=== PATIENT | female | born 1965 | race Caucasian/White ===

== ENCOUNTER 2025-08-20 18:55 | Outpatient (BNV) | payer SELFPAY | END 2025-08-30 12:20 | PROVIDERS: Admitting Provider Psychiatry & Neurology Psychiatry; Visit Provider Internal Medicine Cardiovascular Disease | DX: Z13.6 Encounter for screening for cardiovascular disorders (principal) | CPT/HCPCS: 93010 ==

== ENCOUNTER 2025-08-20 18:55 | Inpatient (IN) | payer OTHER, SELFPAY ==
[2025-08-20 20:00] VITALS: BP 95/59; PULSE 88; RESP 15; TEMP 36.8; O2SAT 98
[2025-08-20 20:40] VITALS: BMI 20.4
--- NOTE | 2025-08-21 02:27 | PC.ADMIT ---
Patient is a 59 y.o. female, who was admitted from [facility]. She arrived to during the change of shift report at 19:30 on 08/20/25. Her legal status is Sec 12B. Upon her arrival [employer] was on the unit and offered patient to sign the CV, but pt was hesitant and not comprehending the legal status, so pt remains on 12B. The previous shift checked her VS and assessed her skin, no abnormal findings were reported. According to crisis evaluation, patient presented at [facility] with medication noncompliance of both medical and psychiatric issues for years. She was accompanied by her son, who is concerned of her mental health and believes she requires inpatient psychiatric evaluation. By his report, she is very disorganized, has AVH, signs and symptoms suggestive decompensated bipolar disorder with psychotic features. During the admission process to , pt. appeared to be overwhelmed and only signed release for her son. She denied SI/HI/AVH, reported zero depression and 10/10 anxiety. I don't know why I am here . She said that her pharmacy is [facility] and that she last took Geodon about 8 months ago. When TW called [facility], they had no prescription records for the last two years. Pt was oriented to the unit and she asked for a snack. She declined meds for sleep and went to sleep at about 10pm. At 12:30 am she was up asking about Geodon, but declined sleep aids.
[2025-08-21 08:00] VITALS: BP 110/54; PULSE 65; TEMP 36.6; O2SAT 97
--- NOTE | 2025-08-21 08:15 | P.CONHOSP_ITS ---
History of Present Illness Data of Consult Service Date: 08/21/25 Primary Care Provider: Unknown Physician HPI Reason for consult: Medical consult 59-year-old female with a past medical history of bipolar 1 disorder, anxiety, history of CVA, type 2 diabetes, hypertension, and a history of syncope presented to [facility] with decompensated bipolar disorder with psychotic features. Per history patient has not been taking her medications or taking care of herself. She is currently on house as well. On exam patient is reporting chronic lower back pain, requesting Lidoderm patches. She otherwise feels well, she is ambulating with a steady gait. Poor dentition, denies any difficulty chewing or swallowing. Outside records reveals CBC within normal limits, electrolytes without any abnormalities, negative tox screen. Review of Systems Review of Systems: Denies any shortness of breath, chest pain, palpitations, dizziness, lightheadedness, headaches, dysuria, abdominal pain or discomfort, nausea, vomiting or diarrhea. Denies Chills, body aches, muscle aches, fatigue or weight loss. PMFSH Social History Household Members: None Housing: Homeless Do you presently have visiting nurse or other home services: No Patient Tobacco Use Status: Never used Tobacco Second Hand Smoke Exposure: No Currently Displaying Signs/Symptoms of Drug Intoxication Withdrawal: No Have you been hit, kicked, punched, or otherwise hurt by someone within the past year? If so, by whom?: No Do you feel safe in your current relationship?: No Current Relationship Advance Directives: No Advance Directives Information Provided: No Do you have thoughts of harming others: None Do you have a plan to hurt others: No Plan Recently lost weight without trying: No Eating poorly because of decreased appetite: No Nutrition Risks: No Nutritional Risk Patient : No : No Meds Allergies Allergy/AdvReac Type Severity Reaction Status Date / Time azithromycin Allergy Unknown Unknown Verified 08/20/25 17:41 latex Allergy Unknown Unknown Verified 08/20/25 17:41 Penicillins (PCN) Allergy Unknown Unknown Verified 08/20/25 17:41 Sulfa (Sulfonamide Allergy Unknown Unknown Verified 08/20/25 17:41 Antibiotics) Active Medications: Current Medications Acetaminophen (Acetaminophen 325 Mg Tablet) 650 mg PO Q6H PRN PRN Reason: Headache/Pain, Scale 1-10 Last Admin: 08/21/25 03:29 Dose: 650 mg Al Hydroxide/Mg Hydroxide (Magnesium Hydrox/Alum Hydrox 30 Ml Oral.Susp) 30 ml PO Q6H PRN PRN Reason: Heartburn/Nausea Hydroxyzine HCl (Hydroxyzine Hcl 25 Mg Tablet) 25 mg PO Q6H PRN PRN Reason: mild anxiety Magnesium Hydroxide (Milk Of Magnesia 30 Ml Oral.Susp) 30 ml PO DAILY PRN PRN Reason: Constipation Nicotine Polacrilex (Nicotine Polacrilex 2 Mg Gum) 4 mg BUCCAL Q2H PRN PRN Reason: Nicotine Cravings Trazodone HCl (Trazodone Hcl 50 Mg Tablet) 50 mg PO BEDTIME MRX1 PRN PRN Reason: Insomnia Home Medications ?Medication ?Instructions ?Recorded ?Confirmed ?Last Taken ?Type No Known Home Meds 08/20/25 08/20/25 Un known History Physical Exam Vital Signs and Narrative: Vital Signs: Last Vital Signs Temp 98.3 F 08/20/25 20:00 Pulse 88 08/20/25 20:00 Resp 15 08/20/25 20:00 BP 95/59 L 08/20/25 20:00 Pulse Ox 98 08/20/25 20:00 BMI result Body Mass Index 20.4 CONST: Alert and oriented, in NAD. Thin, poor dentition, disheveled. HEENT: Normocephalic, atraumatic, MMM, Eyes clear, Neck supple RESP: Lungs clear, RRR even and regular HEART:,RRR, S1, S2. No murmur, no edema GI:Abdomen Soft NT, ND. + BS times four :Deferred SKIN: Warm dry and intact, no visible lesions or rashes NEURO:CN II-XII Intact bilaterally, Sensation intact. Speech clear PSYCH: Calm affect, cooperative. Assessment and Plan (1) B12 deficiency: Status: Acute Plan 59-year-old female with a past medical history of bipolar with psychotic features, anxiety, history of CVA, type 2 diabetes, hypertension, and a history of syncope admitted to inpatient psych for decompensated bipolar disorder. Patient has been off of medications for several years. Bipolar with psychotic features, anxiety Treatment per psychiatric team Hypertension/history of CVA Her blood pressure is stable Not on medications, continue to monitor Type 2 diabetes history Recent A1c 5.3 Diet-controlled Low B12 We will check methylmalonic acid and homocystine levels, CBC with diff Start B12 1000 mcg p.o. Chronic low back pain Lidoderm patches Thank you for allowing me to participate in the care of this patient. Will follow as needed, please notify medical provider with any changes in condition or concerns.
[2025-08-21 08:37] LABS: Hemoglobin A1C 119.0449 umol/L; Total Hemoglobin (HGBA1C) 3448.2344 umol/L
[2025-08-21 09:07] LABS: Cholesterol 172 mg/dL (<200); HDL Cholesterol 55 mg/dL (>40); Magnesium 2.0 mg/dL (1.6-2.6); Triglycerides 73 mg/dL (<150)
[2025-08-21 09:27] LABS: Free T4 (Free Thyroxine) 1.12 ng/dL (0.71-1.85); Thyroid Stimulating Hormone 1.22 uIU/mL (0.32-4.0)
[2025-08-21 09:30] LABS: Folate 5.9 ng/mL (> or = 4.0); Vitamin B12 < 148 pg/mL (200-900)
--- NOTE | 2025-08-21 13:22 | HO.PSYADMNOT ---
HPI Date of Service: 08/21/25 Chief Complaint: F31.9 Sources of Information: patient interviewed, chart reviewed and crisis/core team assessment reviewed HPI Subjective Notes: Section 12B Healthcare Proxy: No Guardianship: No Medical Problems Affecting Mental Status: No Narrative: Per [facility] crisis note: Patient is a 59 year old female who arrived to [facility] via family transportation for psychiatric evaluation. Precipitating Factors: Per report, pt wants an evaluation because she wants to be back on medications. Pt reported to carry bipolar diagnosis, has stopped taking meds for psychiatric and medical conditions for about 2 years. Collateral done in the ED with Son- Ariel who reported pt is not where she used to be, has been between 2-5 years without Geodon and has not been seeing any providers. Ariel reported pt's mental state has declined, she used to ask about her grandchildren but does not anymore, stares intensely at times, talks to herself in two different voices and takes a long pause/time when responding to them. Ariel reported pt seems disconnected from the world, sometimes will not know the date or will point to something that is not there. Ariel reported in pt's apartment, the entire apartment was covered in salt including her floor, furniture, closet, bathroom, even around the toilets and she will not say why. Ariel reported pt has possibly not been showering as the shower looks as if it has not been used in weeks and all the drains are covered, pt also shut the plumbing off underneath so that you cannot use water. Ariel reported when pt is asked when is the last time she has showered she says ?I don't know, I don't smell?. Ariel reported pt does not believe in water, only drinks soda and juice as well as eats junk food, not real food. Ariel reported pt is not brushing her teeth with high sugar intake. Ariel reported pt's neighbors had said she had been screaming to herself in her apartment. Ariel reported pt had not been managing her money, thinks it got stolen or someone stole her phone but according to bank statements, has been going to [employer] every 2 days and taking out $200. Ariel reported pt is declining, not caring for herself, does not feel she needs health insurance and is convinced her license is not so she will not get a new one, it has been for 6 years. Ariel reported pt is not an imminent risk to herseft but is a risk, family has tried assisted living but have been unsuccessful due to her not having active insurance. Ariel reported pt did have a stroke 2 years ago. Ariel reported pt would be going to a [facility]. On M5: patient reports reason for being brought to the hospital is I got evicted . Report that she was accompanied by her son to the [facility]. She reports that her phone disappeared that happended to 2 of them in the past. Patient asked staff if we can help her to locate the phone. She thinks someone took them. Denies mental health symptoms, denies anxiety or depression or manic behaviors. States she has been sleeping and eating well, not lose weight lately neither. Patient confirms that she never like drinking plain water, and admitted that she has been drinking soda but does not think too much soda or coffee will have negative effects on our brain functions. Patient denies family mental health hx but not sure regarding substance use. Denies substance use but smoke 1/2 PPD. Not see OP providers -psychiatrist or therapist or PCP for a long period of time and report she has not taking meds for months. Report hx of Geodone, sudoguest and Motrin. Report hx of stroke 5 years ago where she has left side weakness and was on rehab for it. 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 Currently not able to return home but think her son is helping her finding a new plac to stay. Denies SI/SIB/HI/AVH. Denies suicidal thoughts or suicide attempts hx. However, she appears to be paranoid, disorganized. Not able to process information regarding CV, continue asking cover and over again is it a 6 months thing? on the day she came in and again with this provider this morning. Patient read over and over again but cannot make up her mind of she wants to sign CV. Therefore, she remains on section 12B. Restart on Geodon. Will check electrolyes. Review Lab results with patient. No evidence of low potasium from ED. EKG was WNL. Patient is A+Ox3, wearing casual attire with pink hair, cooperative, appear to be disorganized and paranoid, depressed, soft spoken, no manic behavior. No SI/SIB/HI. Do not appear responding to internal stimuli or self dialogue. Poor to impaired insight and judgment. However, motivated to get back on meds. Past Psychiatric History: Report hx of 5 [facility] admissions, most recent one at [facility] couple years ago Do not have OP or therapist/ PCP at this current time. report med trials of Geordon. No Mood stabilizer Medical Evaluation Reviewed: Yes (Seen by hospitalist ) Seen by Hospitalist on 08/21/25. Low B12 PMFSH Narrative: Hx of stroke- 5 years ago Hx of hypokalemia Hx of hypoglycemia Narrative: Denies surgical hx Family History: Denies family mental health hx. Not sure regarding substance use Social History: , retired, have 2 sons. Currently is evicted. Substance History: Denies current use. Denies hx. Only smoke up to 1/2 PPD. Trauma History: Denies Diagnostics Vital Signs (24Hr): Vital Signs - 24 hr 08/20/25 20:00 08/21/25 08:00 Temperature 98.3 F 97.9 F Pulse Rate 88 65 Respiratory Rate 15 Blood Pressure 95/59 L 110/54 L Pulse Oximetry 98 97 Oxygen Delivery Method Room Air BMI result Body Mass Index 20.4 Labs Labs: Laboratory Results - last 48 hr 08/21/25 07:58 Estimat Average Glucose 105 Hemoglobin A1c % 5.3 Magnesium 2.0 Triglycerides 73 Cholesterol 172 LDL Cholesterol, Calc 103 H HDL Cholesterol 55 Vitamin B12 < 148 L Folate 5.9 TSH 1.22 Free T4 1.12 EKG EKG: reviewed EKG Comment: EKG NSR in the ED Meds/Allergies Meds Home Medications ?Medication ?Instructions ?Recorded ?Confirmed ?Type No Known Home Meds 08/20/25 08/20/25 History Allergies Allergies Allergy/AdvReac Type Severity Reaction Status Date / Time azithromycin Allergy Unknown Unknown Verified 08/20/25 17:41 latex Allergy Unknown Unknown Verified 08/20/25 17:41 Penicillins (PCN) Allergy Unknown Unknown Verified 08/20/25 17:41 Sulfa (Sulfonamide Allergy Unknown Unknown Verified 08/20/25 17:41 Antibiotics) Mental Status Exam Mental Status Exam Narrative: Patient is alert and oriented x3; behavior is cooperative, mild to moderate anxiety; patient is not in distress; dressed in casual attire with kempt pink hair and adequate hygiene; mood is described as good and affect incongruent; eye contact appropriate; Speech is normal rate, volume and prosody and not pressured; no psychomotor agitation/retardation present; thought process is somewhat disorganized and goal directed; Thought content is WNL, pertinent to relevant topics and without any delusional content, however appear to be paranoia; denies any SI/SIB/HI/AH. Do not appear to be responded to internal stimuli. Patient's insight and judgment impaired Assessment & Plan Assessment & Plan (1) Bipolar disorder, curr episode depressed, severe, w/psychotic features: Status: Acute Code(s): F31.5 - Bipolar disorder, current episode depressed, severe, with psychotic features (2) History of stroke: Status: Acute Code(s): Z86.73 - Personal history of transient ischemic attack (TIA), and cerebral infarction without residual deficits (3) Hypokalemia: Status: Acute Code(s): E87.6 - Hypokalemia Plan HPI: Patient is a 59 year old female who arrived to [facility] via family transportation for psychiatric evaluation. Precipitating Factors: Per report, pt wants an evaluation because she wants to be back on medications. Pt reported to carry bipolar diagnosis, has stopped taking meds for psychiatric and medical conditions for about 2 years. Formulation/clinical reasoning: disorganized, paranoid, impaired judgment and insight, not even recognized psychiatric symptoms, she is depressed, not taking care of self, not on meds for a couple years, making unsafe choices, not shower or eating normally, decompensated over time, not on meds either for psychiatric or medical conditions which put her self at risk, no current OP providers. Hx of Bipolar, DM II, HTN, CVA which she not even fully remember. Given the above information, patient would benefit to be in restrictive environment for own safety, medication management and refer patient to OP providers for aftercare. Hospital course: 08/21/25: Restart on Geodon 20mg BID, given with food. Will titrate up. Report was taking 80mg in the past. Motrin and Lidocaine patch for back pain Vitamin B12 1,000mg daily Plan Patient on 15 minute checks for safety. Admitted to . 12B Work with treatment team to do collateral. ADRIANNE did talk to Angel- her son on 08/21/25: please see ADRIANNE note for more details regarding hx and behavior. Per Angel, patient was dx with schizophrenia, bipolar D/O. Refer to OP psychiatrist/ therapist Seen by Hospitalist on 08/21/25. Hx of Hypokelemina: WNL in the ED.Will check lytes on 08/22/25. Patient educated on: diagnosis, medication risk/benefits and therapeutic strategies Informed Consent: understands and further education needed Reason for continued inpatient stay Substantial Risk for: med/psych decompensation Statement Statement: I have reviewed the history and physical and performed a pertinent examination on my patient. No changes have occurred unless specified. If the History and Physical was not performed prior to admission, the Hospitalist's service will be consulted for completing the admission physical. Time Spent With Patient Time: Total time managing care of this patient today ____ minutes.
[2025-08-21 16:59] LABS: Glucose, Whole Blood 102 mg/dL (60-115)
[2025-08-21] MEDS: Nicotine 21 MG PATCH.TD24 TRANSDERMA (17:23)
[2025-08-21 20:00] VITALS: BP 128/61; PULSE 70; RESP 16; TEMP 36.8; O2SAT 97
[2025-08-21 20:49] LABS: Glucose, Whole Blood 124 mg/dL (60-115)
[2025-08-22 08:00] VITALS: BP 120/56; PULSE 75; RESP 16; TEMP 36.2; O2SAT 98
[2025-08-22] MEDS: Lidocaine 4 % Patch ADH..PATCH 2 PATCH TRANSDERMA (08:00)
[2025-08-22] MEDS: Nicotine 21 MG PATCH.TD24 TRANSDERMA (08:01)
[2025-08-22 08:05] LABS: MANUAL DIFF FLAG NO
[2025-08-22 08:14] LABS: Hematocrit 41.0 % (37.0-47.0); Hemoglobin 13.8 g/dl (12.0-16.0); Imm Gran Abs Auto 0.02 X10*3/uL (0.00-0.03); Imm Gran Pct Auto 0.2 % (0.0-0.4); Lymphocytes Absolute Auto 3.5 X10*3/uL (1.2-4.9); Mean Corpuscular HGB Conc 33.7 g/dl (31.0-35.0); Mean Corpuscular Hemoglobin 32.3 pg (27.0-33.0); Mean Corpuscular Volume 96.0 fL (80.0-98.0); NRBC Abs Auto 0.000 X10*3/uL (0.0-0.012); NRBC Pct Auto 0.0 /100WBC (0.0-0.2); Platelet Count 385 X10*3/uL (160-400); Red Blood Count 4.27 X10*6/uL (4.20-5.50); White Blood Count 9.8 X10*3/uL (4.8-10.8)
[2025-08-22 08:24] LABS: Glucose, Whole Blood 92 mg/dL (60-115)
[2025-08-22 08:31] LABS: Anion Gap 9 (12-20); Blood Urea Nitrogen 21 mg/dL (9-16); Calcium 10.2 mg/dL (8.4-10.2); Carbon Dioxide 27 mmol/L (22-29); Chloride 111 mmol/L (96-108); Creatinine Clr Calc Pharmacy 84.6; Estimated Glomerular Filt Rate > 60; Potassium 4.0 mmol/L (3.3-5.1); Sodium 143 mmol/L (135-145)
[2025-08-22 12:20] LABS: Glucose, Whole Blood 113 mg/dL (60-115)
--- NOTE | 2025-08-22 16:52 | HO.PSYCHPN ---
Subjective Subjective Date of Service: 08/22/25 Reason For Visit: F31.9 Subjective Notes: Conditional Voluntary Healthcare Proxy: No Guardianship: No Medical Problems Affecting Mental Status: No Interim History: Medical record and nursing notes reviewed; case discussed during rounds with team/nursing staff, and met with patient for supportive therapy/psychoeducation, as well as medication management. Patient slept for 6 hours, was meds compliant without side effects. Tolerate well with Geodon. Denies mental health symptoms, poor insight and judgment. Patient reports she was given chewable pink color medication- adderall in the ED but not sure the name of medications but she thinks she was given adderall. Patient reports that she was given Adderall in 2016. It was reported to SW on Sunday from her son that it was suspected that patient had hx of overused her adderall. Patient is quiet but appear having racing thoughts. Report back and R hip pain. Reviewed medication plan, patient agrees to take low dose of trazodone for insomnia. Given Ensure BID for low weight, BMI. Patient appears to be disorganized. Medication Compliance: Yes Side effects from medications: No Attending Groups: Yes Review of Systems Acute medical concerns: No Medical Review of Systems: unchanged Review of Systems Review of Systems Constitutional: Denies fatigue and Denies fever(s) Cardiovascular: Denies chest pain and Denies dyspnea Respiratory: Denies dyspnea Gastrointestinal: Denies abdominal pain Psychiatric: denies suicidal ideation Endocrine: Denies fatigue Yes all other systems are reviewed and are negative Mental Status Exam Mental Status Exam Narrative: Patient is alert and oriented x3; behavior is cooperative, mild to moderate anxiety; patient is not in distress; dressed in casual attire with kempt pink hair and adequate hygiene; mood is described as good and affect incongruent; eye contact appropriate; Speech is normal rate, volume and prosody and not pressured; no psychomotor agitation/retardation present; thought process is somewhat disorganized and goal directed; Thought content is WNL, pertinent to relevant topics and without any delusional content, however appear to be paranoia; denies any SI/SIB/HI. Patient's insight and judgment impaired Diagnostics Vital Signs (24Hr): Vital Signs - 24 hr 08/21/25 20:00 08/22/25 08:00 Temperature 98.2 F 97.2 F Pulse Rate 70 75 Respiratory Rate 16 16 Blood Pressure 128/61 120/56 L Pulse Oximetry 97 98 Oxygen Delivery Method Room Air Room Air BMI result Body Mass Index 20.4 Labs 08/22/25 07:38 08/22/25 07:38 Labs: Laboratory Results - last 48 hr 08/21/25 08/21/25 08/21/25 07:58 16:48 20:45 WBC RBC Hgb Hct MCV MCH MCHC RDW Plt Count MPV Immature Gran % (Auto) Neut % (Auto) Lymph % (Auto) [place] % (Auto) Eos % (Auto) Baso % (Auto) Lymph # (Auto) [place] # (Auto) Eos # (Auto) Baso # (Auto) Abs Immat Gran (auto) Absolute Neuts (auto) Absolute Nucleated RBC Nucleated RBC % (auto) Sodium Potassium Chloride Carbon Dioxide Anion Gap BUN Creatinine Estim Creat Clear Calc Estimated GFR POC Glucose 102 124 H Random Glucose Estimat Average Glucose 105 Hemoglobin A1c % 5.3 Calcium Magnesium 2.0 Triglycerides 73 Cholesterol 172 LDL Cholesterol, Calc 103 H HDL Cholesterol 55 Vitamin B12 < 148 L Folate 5.9 TSH 1.22 Free T4 1.12 08/22/25 08/22/25 08/22/25 07:38 08:20 12:16 WBC 9.8 RBC 4.27 Hgb 13.8 Hct 41.0 MCV 96.0 MCH 32.3 MCHC 33.7 RDW 13.2 Plt Count 385 MPV 10.5 Immature Gran % (Auto) 0.2 Neut % (Auto) 51.8 Lymph % (Auto) 35.5 [place] % (Auto) 8.1 Eos % (Auto) 3.3 Baso % (Auto) 1.1 Lymph # (Auto) 3.5 [place] # (Auto) 0.8 Eos # (Auto) 0.3 Baso # (Auto) 0.1 Abs Immat Gran (auto) 0.02 Absolute Neuts (auto) 5.1 Absolute Nucleated RBC 0.000 Nucleated RBC % (auto) 0.0 Sodium 143 Potassium 4.0 Chloride 111 H Carbon Dioxide 27 Anion Gap 9 L BUN 21 H Creatinine 0.65 Estim Creat Clear Calc 84.6 Estimated GFR > 60 POC Glucose 92 113 Random Glucose 77 Estimat Average Glucose Hemoglobin A1c % Calcium 10.2 Magnesium Triglycerides Cholesterol LDL Cholesterol, Calc HDL Cholesterol Vitamin B12 Folate TSH Free T4 Medications Medications Current Medications Acetaminophen (Acetaminophen 325 Mg Tablet) 650 mg PO Q6H PRN PRN Reason: Headache/Pain, Scale 1-10 Last Admin: 08/21/25 13:57 Dose: 650 mg Al Hydroxide/Mg Hydroxide (Magnesium Hydrox/Alum Hydrox 30 Ml Oral.Susp) 30 ml PO Q6H PRN PRN Reason: Heartburn/Nausea Benzocaine (Throat Lozenge, Medicated Lozenge) 1 lozenge MUCOUS MEM Q2H PRN PRN Reason: Sore Throat Cyanocobalamin (Cyanocobalamin (Vitamin B-12) 1,000 Mcg Tablet) 1,000 mcg PO DAILY [facility] Last Admin: 08/22/25 08:01 Dose: 1,000 mcg Dextrose (Dextrose 50 % 25 Gm/50 Ml Syringe) 25 gm IVPUSH Q15M PRN; Protocol PRN Reason: per Hypoglycemia Standing Ord. Glucose (Glucose Gel 15 Gm Gel..Gram.) 15 gm PO Q15M PRN; Protocol PRN Reason: per Hypoglycemia Standing Ord. Hydroxyzine HCl (Hydroxyzine Hcl 25 Mg Tablet) 25 mg PO Q6H PRN PRN Reason: mild anxiety Last Admin: 08/22/25 03:16 Dose: 25 mg Ibuprofen (Ibuprofen 600 Mg Tablet) 600 mg PO Q8H PRN PRN Reason: severe back pain Last Admin: 08/22/25 08:46 Dose: 600 mg Insulin Human Lispro (Insulin Lispro 100 Unit/Ml 3 Ml Vial) 0 unit SUBCUT QIDACHS [facility]; Protocol Last Admin: 08/22/25 12:29 Dose: Not Given Lidocaine (Lidocaine 4 % Patch Adh..Patch) 2 patch TRANSDERMA DAILY [facility]; Protocol Last Admin: 08/22/25 08:00 Dose: 2 patch Magnesium Hydroxide (Milk Of Magnesia 30 Ml Oral.Susp) 30 ml PO DAILY PRN PRN Reason: Constipation Nicotine (Nicotine 21 Mg Patch.Td24) 21 mg TRANSDERMA DAILY [facility] Last Admin: 08/22/25 08:01 Dose: 21 mg Nicotine Polacrilex (Nicotine Polacrilex 2 Mg Gum) 4 mg BUCCAL Q2H PRN PRN Reason: Nicotine Cravings Last Admin: 08/22/25 08:02 Dose: 4 mg Sodium Chloride (Sodium Chloride 0.65 % Nasal 44 Ml Sprbtl) 1 spray NOSTRIL-B Q4H PRN PRN Reason: Congestion Trazodone HCl (Trazodone Hcl 50 Mg Tablet) 50 mg PO BEDTIME MRX1 PRN PRN Reason: Insomnia Trazodone HCl (Trazodone Hcl 25 Mg Halftab) 25 mg PO BEDTIME CAL Ziprasidone (Ziprasidone 20 Mg Capsule) 20 mg PO BID@0900,1700 [facility] Last Admin: 08/22/25 08:01 Dose: 20 mg Allergies Allergies Allergy/AdvReac Type Severity Reaction Status Date / Time azithromycin Allergy Unknown Unknown Verified 08/20/25 17:41 latex Allergy Unknown Unknown Verified 08/20/25 17:41 Penicillins (PCN) Allergy Unknown Unknown Verified 08/20/25 17:41 Sulfa (Sulfonamide Allergy Unknown Unknown Verified 08/20/25 17:41 Antibiotics) Assessment & Plan Assessment & Plan (1) Bipolar disorder, curr episode depressed, severe, w/psychotic features: Status: Acute Code(s): F31.5 - Bipolar disorder, current episode depressed, severe, with psychotic features (2) History of stroke: Status: Acute Code(s): Z86.73 - Personal history of transient ischemic attack (TIA), and cerebral infarction without residual deficits (3) Hypokalemia: Status: Acute Code(s): E87.6 - Hypokalemia (4) B12 deficiency: Status: Acute Code(s): E53.8 - Deficiency of other specified B group vitamins Plan HPI: Patient is a 59 year old female who arrived to [facility] via family transportation for psychiatric evaluation. Precipitating Factors: Per report, pt wants an evaluation because she wants to be back on medications. Pt reported to carry bipolar diagnosis, has stopped taking meds for psychiatric and medical conditions for about 2 years. Formulation/clinical reasoning: disorganized, paranoid, impaired judgment and insight, not even recognized psychiatric symptoms, she is depressed, not taking care of self, not on meds for a couple years, making unsafe choices, not shower or eating normally, decompensated over time, not on meds either for psychiatric or medical conditions which put her self at risk, no current OP providers. Hx of Bipolar, DM II, HTN, CVA which she not even fully remember. Given the above information, patient would benefit to be in restrictive environment for own safety, medication management and refer patient to OP providers for aftercare. Hospital course: 08/21/25: Restart on Geodon 20mg BID, given with food. Will titrate up. Report was taking 80mg in the past. Motrin and Lidocaine patch for back pain Vitamin B12 1,000mg daily 08/22/25: Patient slept for 6 hours, was meds compliant without side effects. Tolerate well with Geodon. Denies mental health symptoms, poor insight and judgment. Patient reports she was given chewable pink color medication- adderall in the ED but not sure the name of medications but she thinks she was given adderall. Patient reports that she was given Adderall in 2016. It was reported to ADRIANNE on Sunday from her son that it was suspected that patient had hx of overused her adderall. Patient is quiet but appear having racing thoughts. Report back and R hip pain. Reviewed medication plan, patient agrees to take low dose of trazodone for insomnia. Given Ensure BID for low weight, BMI. Patient appears to be disorganized. Plan Patient on 15 minute checks for safety. Admitted to . 12B Work with treatment team to do collateral. ADRIANNE did talk to Angel- her son on 08/21/25: please see ADRIANNE note for more details regarding hx and behavior. Per Angel, patient was dx with schizophrenia, bipolar D/O. Refer to OP psychiatrist/ therapist Seen by Hospitalist on 08/21/25. Hx of Hypokelemina: WNL in the ED.Will check lytes on 08/22/25. Patient educated on: diagnosis, medication risk/benefits, substance abuse and therapeutic strategies Reason for continued inpatient stay Substantial Risk for: med/psych decompensation Time Spent With Patient Time: Total time managing care of this patient today ____ minutes.
[2025-08-22 17:19] LABS: Glucose, Whole Blood 141 mg/dL (60-115)
[2025-08-22] MEDS: Sodium Chloride 0.65 % Nasal 44 ML SPRBTL 1 SPRAY NOSTRIL-B (17:43)
[2025-08-22] MEDS: Throat Lozenge, Medicated LOZENGE 1 LOZENGE MUCOUS MEM (17:43)
[2025-08-22 19:46] VITALS: BP 135/59; PULSE 88; TEMP 36.7; O2SAT 98
[2025-08-22 20:11] LABS: Glucose, Whole Blood 115 mg/dL (60-115)
[2025-08-22] MEDS: traZODone HCL 25 MG HALFTAB PO (20:15)
[2025-08-23 07:45] VITALS: BP 124/61; PULSE 78; RESP 16; TEMP 36.4; O2SAT 100
[2025-08-23 07:55] LABS: Glucose, Whole Blood 110 mg/dL (60-115)
[2025-08-23] MEDS: Nicotine 21 MG PATCH.TD24 TRANSDERMA (08:27)
[2025-08-23] MEDS: Lidocaine 4 % Patch ADH..PATCH 2 PATCH TRANSDERMA (08:28)
[2025-08-23] MEDS: Throat Lozenge, Medicated LOZENGE 1 LOZENGE MUCOUS MEM (08:30)
[2025-08-23 12:14] LABS: Glucose, Whole Blood 148 mg/dL (60-115)
--- NOTE | 2025-08-23 18:38 | P.PNPSI_ITS ---
Subjective Subjective Date of Service: 08/23/25 Reason For Visit: F31.9 Subjective Notes: Conditional Voluntary Healthcare Proxy: No Guardianship: No Medical Problems Affecting Mental Status: No Interim History: Medical record and nursing notes reviewed; case discussed during rounds with team/nursing staff, and met with patient for supportive therapy/psychoeducation, as well as medication management. Patient slept better, has been eating good. Blood sugar is within normal limits was slightly elevated. Point of care was DC'd. Patient asked about her insurance, wants Geodon to be increased. Perseverative about Geodon 80 mg which she was on in the past. Reports running nose/allergy symptoms. Continued to denies signs symptoms, poor insight and judgment, quiet, visible, compliant with medications. She is disorganized but slightly improved. Medication Compliance: Yes Side effects from medications: No Attending Groups: Intermittent Review of Systems Acute medical concerns: No Medical Review of Systems: unchanged Review of Systems Review of Systems Constitutional: Denies fatigue and Denies fever(s) Cardiovascular: Denies chest pain and Denies dyspnea Respiratory: Denies dyspnea Gastrointestinal: Denies abdominal pain Psychiatric: denies suicidal ideation Endocrine: Denies fatigue Yes all other systems are reviewed and are negative Mental Status Exam Mental Status Exam Narrative: Patient is alert and oriented x3; behavior is cooperative, mild to moderate anxiety; patient is not in distress; dressed in casual attire with kempt pink hair and adequate hygiene; mood is described as good and affect congruent; eye contact appropriate; Speech is normal rate, volume and prosody and not pressured; no psychomotor agitation/retardation present; thought process is somewhat disorganized and goal directed; Thought content is WNL, pertinent to relevant topics and without any delusional content, denies any SI/SIB/HI. Patient's insight and judgment impaired Diagnostics Vital Signs (24Hr): Vital Signs - 24 hr 08/22/25 19:46 08/23/25 07:45 Temperature 98.1 F 97.5 F Pulse Rate 88 78 Respiratory Rate 16 Blood Pressure 135/59 L 124/61 Pulse Oximetry 98 100 Oxygen Delivery Method Room Air Room Air BMI result Body Mass Index 20.4 Labs 08/22/25 07:38 08/22/25 07:38 Labs: Laboratory Results - last 48 hr 08/21/25 08/22/25 08/22/25 20:45 07:38 08:20 WBC 9.8 RBC 4.27 Hgb 13.8 Hct 41.0 MCV 96.0 MCH 32.3 MCHC 33.7 RDW 13.2 Plt Count 385 MPV 10.5 Immature Gran % (Auto) 0.2 Neut % (Auto) 51.8 Lymph % (Auto) 35.5 [place] % (Auto) 8.1 Eos % (Auto) 3.3 Baso % (Auto) 1.1 Lymph # (Auto) 3.5 [place] # (Auto) 0.8 Eos # (Auto) 0.3 Baso # (Auto) 0.1 Abs Immat Gran (auto) 0.02 Absolute Neuts (auto) 5.1 Absolute Nucleated RBC 0.000 Nucleated RBC % (auto) 0.0 Sodium 143 Potassium 4.0 Chloride 111 H Carbon Dioxide 27 Anion Gap 9 L BUN 21 H Creatinine 0.65 Estim Creat Clear Calc 84.6 Estimated GFR > 60 POC Glucose 124 H 92 Random Glucose 77 Calcium 10.2 08/22/25 08/22/25 08/22/25 12:16 17:09 20:02 WBC RBC Hgb Hct MCV MCH MCHC RDW Plt Count MPV Immature Gran % (Auto) Neut % (Auto) Lymph % (Auto) [place] % (Auto) Eos % (Auto) Baso % (Auto) Lymph # (Auto) [place] # (Auto) Eos # (Auto) Baso # (Auto) Abs Immat Gran (auto) Absolute Neuts (auto) Absolute Nucleated RBC Nucleated RBC % (auto) Sodium Potassium Chloride Carbon Dioxide Anion Gap BUN Creatinine Estim Creat Clear Calc Estimated GFR POC Glucose 113 141 H 115 Random Glucose Calcium 08/23/25 08/23/25 07:45 12:08 WBC RBC Hgb Hct MCV MCH MCHC RDW Plt Count MPV Immature Gran % (Auto) Neut % (Auto) Lymph % (Auto) [place] % (Auto) Eos % (Auto) Baso % (Auto) Lymph # (Auto) [place] # (Auto) Eos # (Auto) Baso # (Auto) Abs Immat Gran (auto) Absolute Neuts (auto) Absolute Nucleated RBC Nucleated RBC % (auto) Sodium Potassium Chloride Carbon Dioxide Anion Gap BUN Creatinine Estim Creat Clear Calc Estimated GFR POC Glucose 110 148 H Random Glucose Calcium Medications Medications Current Medications Acetaminophen (Acetaminophen 325 Mg Tablet) 650 mg PO Q6H PRN PRN Reason: Headache/Pain, Scale 1-10 Last Admin: 08/21/25 13:57 Dose: 650 mg Al Hydroxide/Mg Hydroxide (Magnesium Hydrox/Alum Hydrox 30 Ml Oral.Susp) 30 ml PO Q6H PRN PRN Reason: Heartburn/Nausea Benzocaine (Throat Lozenge, Medicated Lozenge) 1 lozenge MUCOUS MEM Q2H PRN PRN Reason: Sore Throat Last Admin: 08/23/25 08:30 Dose: 1 lozenge Cyanocobalamin (Cyanocobalamin (Vitamin B-12) 1,000 Mcg Tablet) 1,000 mcg PO DAILY [facility] Last Admin: 08/23/25 08:30 Dose: 1,000 mcg Dextrose (Dextrose 50 % 25 Gm/50 Ml Syringe) 25 gm IVPUSH Q15M PRN; Protocol PRN Reason: per Hypoglycemia Standing Ord. Glucose (Glucose Gel 15 Gm Gel..Gram.) 15 gm PO Q15M PRN; Protocol PRN Reason: per Hypoglycemia Standing Ord. Hydroxyzine HCl (Hydroxyzine Hcl 25 Mg Tablet) 25 mg PO Q6H PRN PRN Reason: mild anxiety Last Admin: 08/23/25 12:02 Dose: 25 mg Ibuprofen (Ibuprofen 600 Mg Tablet) 600 mg PO Q8H PRN PRN Reason: severe back pain Last Admin: 08/23/25 08:41 Dose: 600 mg Lidocaine (Lidocaine 4 % Patch Adh..Patch) 2 patch TRANSDERMA DAILY [facility]; Protocol Last Admin: 08/23/25 08:28 Dose: 2 patch Loratadine (Loratadine 10 Mg Tablet) 10 mg PO DAILY [facility] Magnesium Hydroxide (Milk Of Magnesia 30 Ml Oral.Susp) 30 ml PO DAILY PRN PRN Reason: Constipation Nicotine (Nicotine 21 Mg Patch.Td24) 21 mg TRANSDERMA DAILY [facility] Last Admin: 08/23/25 08:27 Dose: 21 mg Nicotine Polacrilex (Nicotine Polacrilex 2 Mg Gum) 4 mg BUCCAL Q2H PRN PRN Reason: Nicotine Cravings Last Admin: 08/23/25 16:01 Dose: 4 mg Sodium Chloride (Sodium Chloride 0.65 % Nasal 44 Ml Sprbtl) 1 spray NOSTRIL-B Q4H PRN PRN Reason: Congestion Last Admin: 08/22/25 17:43 Dose: 1 spray Trazodone HCl (Trazodone Hcl 50 Mg Tablet) 50 mg PO BEDTIME MRX1 PRN PRN Reason: Insomnia Trazodone HCl (Trazodone Hcl 25 Mg Halftab) 25 mg PO BEDTIME [facility] Last Admin: 08/22/25 20:15 Dose: 25 mg Ziprasidone (Ziprasidone 20 Mg Capsule) 20 mg PO DAILY [facility] Ziprasidone (Ziprasidone 40 Mg Capsule) 40 mg PO DAILY@1700 [facility] Last Admin: 08/23/25 17:33 Dose: 40 mg Allergies Allergies Allergy/AdvReac Type Severity Reaction Status Date / Time azithromycin Allergy Unknown Unknown Verified 08/20/25 17:41 latex Allergy Unknown Unknown Verified 08/20/25 17:41 Penicillins (PCN) Allergy Unknown Unknown Verified 08/20/25 17:41 Sulfa (Sulfonamide Allergy Unknown Unknown Verified 08/20/25 17:41 Antibiotics) Assessment & Plan Assessment & Plan (1) Bipolar disorder, curr episode depressed, severe, w/psychotic features: Status: Acute Code(s): F31.5 - Bipolar disorder, current episode depressed, severe, with psychotic features (2) History of stroke: Status: Acute Code(s): Z86.73 - Personal history of transient ischemic attack (TIA), and cerebral infarction without residual deficits (3) Hypokalemia: Status: Acute Code(s): E87.6 - Hypokalemia (4) B12 deficiency: Status: Acute Code(s): E53.8 - Deficiency of other specified B group vitamins Plan HPI: Patient is a 59 year old female who arrived to [facility] via family transportation for psychiatric evaluation. Precipitating Factors: Per report, pt wants an evaluation because she wants to be back on medications. Pt reported to carry bipolar diagnosis, has stopped taking meds for psychiatric and medical conditions for about 2 years. Formulation/clinical reasoning: disorganized, paranoid, impaired judgment and insight, not even recognized psychiatric symptoms, she is depressed, not taking care of self, not on meds for a couple years, making unsafe choices, not shower or eating normally, decompensated over time, not on meds either for psychiatric or medical conditions which put her self at risk, no current OP providers. Hx of Bipolar, DM II, HTN, CVA which she not even fully remember. Given the above information, patient would benefit to be in restrictive environment for own safety, medication management and refer patient to OP providers for aftercare. Hospital course: 08/21/25: Restart on Geodon 20mg BID, given with food. Will titrate up. Report was taking 80mg in the past. Motrin and Lidocaine patch for back pain Vitamin B12 1,000mg daily 08/22/25: Patient slept for 6 hours, was meds compliant without side effects. Tolerate well with Geodon. Denies mental health symptoms, poor insight and judgment. Patient reports she was given chewable pink color medication- adderall in the ED but not sure the name of medications but she thinks she was given adderall. Patient reports that she was given Adderall in 2016. It was reported to SW on Sunday from her son that it was suspected that patient had hx of overused her adderall. Patient is quiet but appear having racing thoughts. Report back and R hip pain. Reviewed medication plan, patient agrees to take low dose of trazodone for insomnia. Given Ensure BID for low weight, BMI. Patient appears to be disorganized. 08/23/25: Patient slept better, has been eating good. Blood sugar is within normal limits was slightly elevated. Point of care was DC'd. Patient asked about her insurance, wants Geodon to be increased. Perseverative about Geodon 80 mg which she was on in the past. Reports running nose/allergy symptoms. Continued to denies signs symptoms, poor insight and judgment, quiet, visible, compliant with medications. She is disorganized but slightly improved. Increase Geodon up to 60mg total daily in divided dose. Give with food. Claritin 10mg daily for allergy. Plan Patient on 15 minute checks for safety. Admitted to . CV Work with treatment team to do collateral. ADRIANNE did talk to Angel- her son on 08/21/25: please see ADRIANNE note for more details regarding hx and behavior. Per Angel, patient was dx with schizophrenia, bipolar D/O. Refer to OP psychiatrist/ therapist Seen by Hospitalist on 08/21/25. Hx of Hypokelemina: WNL in the ED.Will check lytes on 08/22/25. Patient educated on: diagnosis, medication risk/benefits and therapeutic strategies Informed Consent: understands and further education needed Reason for continued inpatient stay Substantial Risk for: med/psych decompensation Time Spent With Patient Time: Total time managing care of this patient today ____ minutes.
[2025-08-23 19:50] VITALS: BP 105/58; PULSE 89; TEMP 37.1; O2SAT 96
[2025-08-23] MEDS: traZODone HCL 25 MG HALFTAB PO (20:07)
[2025-08-24 08:00] VITALS: BP 117/61; PULSE 90; RESP 16; TEMP 35.5; O2SAT 97
[2025-08-24] MEDS: Nicotine 21 MG PATCH.TD24 TRANSDERMA (09:03)
--- NOTE | 2025-08-24 09:14 | P.PNPSI_ITS ---
Subjective Subjective Date of Service: 08/24/25 Reason For Visit: F31.9 Interim History: Met with patient; discussed with team; reviewed chart Patient reports she is Sleeping through the night. She remains a limited historian, not remembering much. When asked about manic episodes she says she will have 2 days of not sleeping and then refers to her struggles in high school where she was late to school many days because of oversleeping... She thinks she may have gone as much as 5 days without sleeping at different times in her life. When asked about other manic symptoms, patient starts to inappropriately laugh in a hilarious way saying that she does excess food shopping, nothing perishable... It is difficult to get specifics and patient continues to laugh, somewhat uncontrollably at the questions. Cigarette Paper Tester discussed medication and patient patient Says Nick ?Makes me feel better? and on inquiry agrees that it helps her Think more clearly Denies hx of AVH Cigarette Paper Tester reviewed medication list sent in documentation from [place] [facility], however patient is unaware of them: Primodine 50mg qhs; Denies any hx of seizurehad a stroke 5 years, hard to right (rt side); Buspar 10mg TID Wellbutren ER 100mg Lyrica 75 Bid From chart, and collateral patient's son says she does not eat in a healthy way, consumes excess amount of sugar and only drinks sugared drinks Family reports patient has not been attending to any ADLs though patient says otherwise Cigarette Paper Tester asked about why she was putting salt around the toilet and she says it is just to clean the area Denies any history of alcoholism though collateral strongly says otherwise Family concerned that perhaps patient's account information has been stolen the money was being consistently withdrawn Mental Status Exam Mental Status Exam Narrative: Pt is alert and oriented; behavior is quiet, keeping to herself, somewhat apprehensive but cooperative, friendly and calm on approach; patient is not in distress; dressed in casual attire with pink dyed hair, unkempt; mood is described as okay and affect anxious, apprehensive; eye contact appropriate; Speech is a little quiet but normal rate, and prosody; not pressured; no psychomotor agitation/retardation present; thought process is goal directed but distracted and with latency; Thought content seems to be on tx; no delusional ideations expressed; denies any SI/HI. Denies AVH and does not seem to be particularly internally preoccupied but not clear yet Patients insight and judgment impaired; not sure baseline Diagnostics Vital Signs (24Hr): Vital Signs - 24 hr 08/23/25 19:50 Temperature 98.8 F Pulse Rate 89 Blood Pressure 105/58 L Pulse Oximetry 96 Oxygen Delivery Method Room Air BMI result Body Mass Index 20.4 Labs 08/22/25 07:38 08/22/25 07:38 Labs: Laboratory Results - last 48 hr 08/22/25 08/22/25 08/22/25 12:16 17:09 20:02 POC Glucose 113 141 H 115 08/23/25 08/23/25 07:45 12:08 POC Glucose 110 148 H Medications Medications Current Medications Acetaminophen (Acetaminophen 325 Mg Tablet) 650 mg PO Q6H PRN PRN Reason: Headache/Pain, Scale 1-10 Last Admin: 08/21/25 13:57 Dose: 650 mg Al Hydroxide/Mg Hydroxide (Magnesium Hydrox/Alum Hydrox 30 Ml Oral.Susp) 30 ml PO Q6H PRN PRN Reason: Heartburn/Nausea Benzocaine (Throat Lozenge, Medicated Lozenge) 1 lozenge MUCOUS MEM Q2H PRN PRN Reason: Sore Throat Last Admin: 08/23/25 08:30 Dose: 1 lozenge Cyanocobalamin (Cyanocobalamin (Vitamin B-12) 1,000 Mcg Tablet) 1,000 mcg PO DAILY CAL Last Admin: 08/24/25 09:03 Dose: 1,000 mcg Dextrose (Dextrose 50 % 25 Gm/50 Ml Syringe) 25 gm IVPUSH Q15M PRN; Protocol PRN Reason: per Hypoglycemia Standing Ord. Glucose (Glucose Gel 15 Gm Gel..Gram.) 15 gm PO Q15M PRN; Protocol PRN Reason: per Hypoglycemia Standing Ord. Hydroxyzine HCl (Hydroxyzine Hcl 25 Mg Tablet) 25 mg PO Q6H PRN PRN Reason: mild anxiety Last Admin: 08/24/25 04:10 Dose: 25 mg Ibuprofen (Ibuprofen 600 Mg Tablet) 600 mg PO Q8H PRN PRN Reason: severe back pain Last Admin: 08/24/25 04:10 Dose: 600 mg Lidocaine (Lidocaine 4 % Patch Adh..Patch) 2 patch TRANSDERMA DAILY CAL; Protocol Last Admin: 08/23/25 08:28 Dose: 2 patch Loratadine (Loratadine 10 Mg Tablet) 10 mg PO DAILY [facility] Last Admin: 08/24/25 09:02 Dose: 10 mg Magnesium Hydroxide (Milk Of Magnesia 30 Ml Oral.Susp) 30 ml PO DAILY PRN PRN Reason: Constipation Nicotine (Nicotine 21 Mg Patch.Td24) 21 mg TRANSDERMA DAILY [facility] Last Admin: 08/24/25 09:03 Dose: 21 mg Nicotine Polacrilex (Nicotine Polacrilex 2 Mg Gum) 4 mg BUCCAL Q2H PRN PRN Reason: Nicotine Cravings Last Admin: 08/24/25 04:11 Dose: 4 mg Sodium Chloride (Sodium Chloride 0.65 % Nasal 44 Ml Sprbtl) 1 spray NOSTRIL-B Q4H PRN PRN Reason: Congestion Last Admin: 08/22/25 17:43 Dose: 1 spray Trazodone HCl (Trazodone Hcl 50 Mg Tablet) 50 mg PO BEDTIME MRX1 PRN PRN Reason: Insomnia Trazodone HCl (Trazodone Hcl 25 Mg Halftab) 25 mg PO BEDTIME [facility] Last Admin: 08/23/25 20:07 Dose: 25 mg Ziprasidone (Ziprasidone 20 Mg Capsule) 20 mg PO DAILY [facility] Last Admin: 08/24/25 09:03 Dose: 20 mg Ziprasidone (Ziprasidone 40 Mg Capsule) 40 mg PO DAILY@1700 [facility] Last Admin: 08/23/25 17:33 Dose: 40 mg Allergies Allergies Allergy/AdvReac Type Severity Reaction Status Date / Time azithromycin Allergy Unknown Unknown Verified 08/20/25 17:41 latex Allergy Unknown Unknown Verified 08/20/25 17:41 Penicillins (PCN) Allergy Unknown Unknown Verified 08/20/25 17:41 Sulfa (Sulfonamide Allergy Unknown Unknown Verified 08/20/25 17:41 Antibiotics) Assessment & Plan Assessment & Plan (1) Bipolar disorder, curr episode depressed, severe, w/psychotic features: Status: Acute Code(s): F31.5 - Bipolar disorder, current episode depressed, severe, with psychotic features (2) History of stroke: Status: Acute Code(s): Z86.73 - Personal history of transient ischemic attack (TIA), and cerebral infarction without residual deficits (3) Hypokalemia: Status: Acute Code(s): E87.6 - Hypokalemia (4) B12 deficiency: Status: Acute Code(s): E53.8 - Deficiency of other specified B group vitamins Plan HPI: Patient is a 59 year old female who arrived to [facility] via family transportation for psychiatric evaluation. Precipitating Factors: Per report, pt wants an evaluation because she wants to be back on medications. Pt reported to carry bipolar diagnosis, has stopped taking meds for psychiatric and medical conditions for about 2 years. Formulation/clinical reasoning: disorganized, paranoid, impaired judgment and insight, not even recognized psychiatric symptoms, she is depressed, not taking care of self, not on meds for a couple years, making unsafe choices, not shower or eating normally, decompensated over time, not on meds either for psychiatric or medical conditions which put her self at risk, no current OP providers. Hx of Bipolar, DM II, HTN, CVA which she not even fully remember. Given the above information, patient would benefit to be in restrictive environment for own safety, medication management and refer patient to OP providers for aftercare. Hospital course: 08/21/25: Restart on Geodon 20mg BID, given with food. Will titrate up. Report was taking 80mg in the past. Motrin and Lidocaine patch for back pain Vitamin B12 1,000mg daily 08/22/25: Patient slept for 6 hours, was meds compliant without side effects. Tolerate well with Geodon. Denies mental health symptoms, poor insight and judgment. Patient reports she was given chewable pink color medication- adderall in the ED but not sure the name of medications but she thinks she was given adderall. Patient reports that she was given Adderall in 2016. It was reported to on Sunday from her son that it was suspected that patient had hx of overused her adderall. Patient is quiet but appear having racing thoughts. Report back and R hip pain. Reviewed medication plan, patient agrees to take low dose of trazodone for insomnia. Given Ensure BID for low weight, BMI. Patient appears to be disorganized. 08/23/25: Patient slept better, has been eating good. Blood sugar is within normal limits was slightly elevated. Point of care was DC'd. Patient asked about her insurance, wants Geodon to be increased. Perseverative about Geodon 80 mg which she was on in the past. Reports running nose/allergy symptoms. Continued to denies signs symptoms, poor insight and judgment, quiet, visible, compliant with medications. She is disorganized but slightly improved. Increase Geodon up to 60mg total daily in divided dose. Give with food. Claritin 10mg daily for allergy. 08/24 Patient reports she is Sleeping through the night. She remains a limited historian, not remembering much. When asked about manic episodes she says she will have 2 days of not sleeping and then refers to her struggles in high school where she was late to school many days because of oversleeping... She thinks she may have gone as much as 5 days without sleeping at different times in her life. When asked about other manic symptoms, patient starts to inappropriately laugh in a hilarious way saying that she does excess food shopping, nothing perishable... It is difficult to get specifics and patient continues to laugh, somewhat uncontrollably at the questions. Cigarette Paper Tester discussed medication and patient patient Says Geodon ?Makes me feel better? and on inquiry agrees that it helps her Think more clearly; she agrees to titrated to 80 mg b.i.d. Denies hx of AVH Cigarette Paper Tester reviewed medication list sent in documentation from [place] [facility], however patient is unaware of them: Primodine 50mg qhs; Denies any hx of seizure; had a stroke 5 years, hard to right (rt side); Buspar 10mg TID Wellbutren ER 100mg Lyrica 75 Bid Geodon 80 mg b.i.d. From chart, and collateral patient's son says she does not eat in a healthy way, consumes excess amount of sugar and only drinks sugared drinks Family reports patient has not been attending to any ADLs though patient says otherwise Cigarette Paper Tester asked about why she was putting salt around the toilet and she says it is just to clean the area Denies any history of alcoholism though collateral strongly says otherwise Family concerned that perhaps patient's account information has been stolen the money was being consistently withdrawn Hx of Hypokelemina: WNL in the ED.Will check lytes on 08/22/25. B12 deficiency? Homocystine labs pending Methylmalonic acid labs pending Impression: Patient seems to have cognitive impairment, not sure if it is due psychosis, history of stroke, burgeoning dementia or history of chronic alcoholism (or combination); B12 deficiency with labs pending. Patient is in good behavioral and impulse control. Though with limited insight, she is amenable to medication regimen. Patient's sons are trying to help with aftercare Plan: CV Q 15 minute checks Titrate Geodon; patient was on 80 mg b.i.d. in the past Will hold off with other medications as patient has been off all medications for 2 years (BuSpar, Wellbutrin, Lyrica; reported history of primidone but not sure why) Continue to get collateral Refer to OP psychiatrist/ therapist Patient educated on: diagnosis, medication risk/benefits, substance abuse, therapeutic strategies and medical condition Informed Consent: understands, does not understand and further education needed Reason for continued inpatient stay Substantial Risk for: rapid decompensation Time Spent With Patient Time: Total time managing care of this patient today ____ minutes.
[2025-08-24] MEDS: Lidocaine 4 % Patch ADH..PATCH 2 PATCH TRANSDERMA (13:50)
[2025-08-24 20:00] VITALS: BP 134/60; PULSE 90; RESP 18; TEMP 2.6; TEMP 36.6; O2SAT 97
[2025-08-24] MEDS: traZODone HCL 25 MG HALFTAB PO (21:29)
[2025-08-25 08:00] VITALS: BP 109/55; PULSE 84; RESP 16; TEMP 36.5; O2SAT 97
[2025-08-25] MEDS: Nicotine 21 MG PATCH.TD24 TRANSDERMA (09:00)
[2025-08-25] MEDS: Lidocaine 4 % Patch ADH..PATCH 2 PATCH TRANSDERMA (10:44)
--- NOTE | 2025-08-25 13:37 | P.PNPSI_ITS ---
Subjective Subjective Date of Service: 08/25/25 Reason For Visit: F31.9 Interim History: Met with patient; discussed with team Patient reports she is good and denies psychiatric symptoms including AVH or paranoid ideations; however remains guarded and appears to be internally preoccupied and laughing inappropriately. Patient talking in whispers. Asks for Geodon to be further increased to 80 mg b.i.d. and wants to discuss discharge, agreeing that this still needs to be further planned out Mental Status Exam Mental Status Exam Narrative: Pt is alert and oriented; behavior is quiet, keeping to herself, guarded but also cooperative, calm on approach; some disorganization in laughing inappropriately either to curriculum writer or to herself; patient is not in distress; dressed in casual attire with pink dyed hair, unkempt; mood is described as okay and affect anxious, apprehensive; eye contact appropriate; Speech is quiet, sometimes whisper, but normal rate, and prosody; not pressured; no psychomotor agitation/retardation present; thought process is goal directed but distracted and with latency; Thought content seems to be on discharge however patient internally preoccupied and laughing to unknown things; denies any SI/HI. Denies AVH but does seem internally preoccupied. Patients insight and judgment impaired though improving Diagnostics Vital Signs (24Hr): Vital Signs - 24 hr 08/24/25 20:00 08/25/25 08:00 Temperature 36.6 F L 97.7 F Pulse Rate 90 84 Respiratory Rate 18 16 Blood Pressure 134/60 109/55 L Pulse Oximetry 97 97 Oxygen Delivery Method Room Air Room Air BMI result Body Mass Index 20.4 Labs 08/22/25 07:38 08/22/25 07:38 Medications Medications Current Medications Acetaminophen (Acetaminophen 325 Mg Tablet) 650 mg PO Q6H PRN PRN Reason: Headache/Pain, Scale 1-10 Last Admin: 08/24/25 21:32 Dose: 650 mg Al Hydroxide/Mg Hydroxide (Magnesium Hydrox/Alum Hydrox 30 Ml Oral.Susp) 30 ml PO Q6H PRN PRN Reason: Heartburn/Nausea Benzocaine (Throat Lozenge, Medicated Lozenge) 1 lozenge MUCOUS MEM Q2H PRN PRN Reason: Sore Throat Last Admin: 08/23/25 08:30 Dose: 1 lozenge Cyanocobalamin (Cyanocobalamin (Vitamin B-12) 1,000 Mcg Tablet) 1,000 mcg PO DAILY [facility] Last Admin: 08/25/25 09:02 Dose: 1,000 mcg Dextrose (Dextrose 50 % 25 Gm/50 Ml Syringe) 25 gm IVPUSH Q15M PRN; Protocol PRN Reason: per Hypoglycemia Standing Ord. Glucose (Glucose Gel 15 Gm Gel..Gram.) 15 gm PO Q15M PRN; Protocol PRN Reason: per Hypoglycemia Standing Ord. Hydroxyzine HCl (Hydroxyzine Hcl 25 Mg Tablet) 25 mg PO Q6H PRN PRN Reason: mild anxiety Last Admin: 08/25/25 05:21 Dose: 25 mg Ibuprofen (Ibuprofen 600 Mg Tablet) 600 mg PO Q8H PRN PRN Reason: severe back pain Last Admin: 08/25/25 05:21 Dose: 600 mg Lidocaine (Lidocaine 4 % Patch Adh..Patch) 2 patch TRANSDERMA DAILY [facility]; Protocol Last Admin: 08/25/25 10:44 Dose: 2 patch Loratadine (Loratadine 10 Mg Tablet) 10 mg PO DAILY [facility] Last Admin: 08/25/25 09:02 Dose: 10 mg Magnesium Hydroxide (Milk Of Magnesia 30 Ml Oral.Susp) 30 ml PO DAILY PRN PRN Reason: Constipation Nicotine (Nicotine 21 Mg Patch.Td24) 21 mg TRANSDERMA DAILY [facility] Last Admin: 08/25/25 09:00 Dose: 21 mg Nicotine Polacrilex (Nicotine Polacrilex 2 Mg Gum) 4 mg BUCCAL Q2H PRN PRN Reason: Nicotine Cravings Last Admin: 08/24/25 13:48 Dose: 4 mg Sodium Chloride (Sodium Chloride 0.65 % Nasal 44 Ml Sprbtl) 1 spray NOSTRIL-B Q4H PRN PRN Reason: Congestion Last Admin: 08/22/25 17:43 Dose: 1 spray Trazodone HCl (Trazodone Hcl 50 Mg Tablet) 50 mg PO BEDTIME MRX1 PRN PRN Reason: Insomnia Trazodone HCl (Trazodone Hcl 25 Mg Halftab) 25 mg PO BEDTIME [facility] Last Admin: 08/24/25 21:29 Dose: 25 mg Ziprasidone (Ziprasidone 60 Mg Capsule) 60 mg PO BID@0900,1700 [facility] Last Admin: 08/25/25 09:02 Dose: 60 mg Allergies Allergies Allergy/AdvReac Type Severity Reaction Status Date / Time azithromycin Allergy Unknown Unknown Verified 08/20/25 17:41 latex Allergy Unknown Unknown Verified 08/20/25 17:41 Penicillins (PCN) Allergy Unknown Unknown Verified 08/20/25 17:41 Sulfa (Sulfonamide Allergy Unknown Unknown Verified 08/20/25 17:41 Antibiotics) Assessment & Plan Assessment & Plan (1) Bipolar disorder, curr episode depressed, severe, w/psychotic features: Status: Acute Code(s): F31.5 - Bipolar disorder, current episode depressed, severe, with psychotic features (2) History of stroke: Status: Acute Code(s): Z86.73 - Personal history of transient ischemic attack (TIA), and cerebral infarction without residual deficits (3) Hypokalemia: Status: Acute Code(s): E87.6 - Hypokalemia (4) B12 deficiency: Status: Acute Code(s): E53.8 - Deficiency of other specified B group vitamins Plan HPI: Patient is a 59 year old female who arrived to [facility] via family transportation for psychiatric evaluation. Precipitating Factors: Per report, pt wants an evaluation because she wants to be back on medications. Pt reported to carry bipolar diagnosis, has stopped taking meds for psychiatric and medical conditions for about 2 years. Formulation/clinical reasoning: disorganized, paranoid, impaired judgment and insight, not even recognized psychiatric symptoms, she is depressed, not taking care of self, not on meds for a couple years, making unsafe choices, not shower or eating normally, decompensated over time, not on meds either for psychiatric or medical conditions which put her self at risk, no current OP providers. Hx of Bipolar, DM II, HTN, CVA which she not even fully remember. Given the above information, patient would benefit to be in restrictive environment for own safety, medication management and refer patient to OP providers for aftercare. Hospital course: 08/21/25: Restart on Geodon 20mg BID, given with food. Will titrate up. Report was taking 80mg in the past. Motrin and Lidocaine patch for back pain Vitamin B12 1,000mg daily 08/22/25: Patient slept for 6 hours, was meds compliant without side effects. Tolerate well with Geodon. Denies mental health symptoms, poor insight and judgment. Patient reports she was given chewable pink color medication- adderall in the ED but not sure the name of medications but she thinks she was given adderall. Patient reports that she was given Adderall in 2016. It was reported to SW on Sunday from her son that it was suspected that patient had hx of overused her adderall. Patient is quiet but appear having racing thoughts. Report back and R hip pain. Reviewed medication plan, patient agrees to take low dose of trazodone for insomnia. Given Ensure BID for low weight, BMI. Patient appears to be disorganized. 08/23/25: Patient slept better, has been eating good. Blood sugar is within normal limits was slightly elevated. Point of care was DC'd. Patient asked about her insurance, wants Geodon to be increased. Perseverative about Geodon 80 mg which she was on in the past. Reports running nose/allergy symptoms. Continued to denies signs symptoms, poor insight and judgment, quiet, visible, compliant with medications. She is disorganized but slightly improved. Increase Geodon up to 60mg total daily in divided dose. Give with food. Claritin 10mg daily for allergy. 08/24 Patient reports she is Sleeping through the night. She remains a limited historian, not remembering much. When asked about manic episodes she says she will have 2 days of not sleeping and then refers to her struggles in high school where she was late to school many days because of oversleeping... She thinks she may have gone as much as 5 days without sleeping at different times in her life. When asked about other manic symptoms, patient starts to inappropriately laugh in a hilarious way saying that she does excess food shopping, nothing perishable... It is difficult to get specifics and patient continues to laugh, somewhat uncontrollably at the questions. Order Desk Caller discussed medication and patient patient Says Geodon ?Makes me feel better? and on inquiry agrees that it helps her Think more clearly; she agrees to titrated to 80 mg b.i.d. Denies hx of AVH Order Desk Caller reviewed medication list sent in documentation from [place] [facility], however patient is unaware of them: Primodine 50mg qhs; Denies any hx of seizure; had a stroke 5 years, hard to right (rt side); Buspar 10mg TID Wellbutren ER 100mg Lyrica 75 Bid Geodon 80 mg b.i.d. From chart, and collateral patient's son says she does not eat in a healthy way, consumes excess amount of sugar and only drinks sugared drinks Family reports patient has not been attending to any ADLs though patient says otherwise Order Desk Caller asked about why she was putting salt around the toilet and she says it is just to clean the area Denies any history of alcoholism though collateral strongly says otherwise Family concerned that perhaps patient's account information has been stolen the money was being consistently withdrawn Hx of Hypokelemina: WNL in the ED.Will check lytes on 08/22/25. B12 deficiency? Homocystine labs pending Methylmalonic acid labs pending Impression: Patient seems to have cognitive impairment, not sure if it is due psychosis, history of stroke, burgeoning dementia or history of chronic alcoholism (or combination); B12 deficiency with labs pending. Patient is in good behavioral and impulse control. Though with limited insight, she is amenable to medication regimen. Patient's sons are trying to help with aftercare 08/25 Patient reports she is good and denies psychiatric symptoms including AVH or paranoid ideations; however remains guarded and appears to be internally preoccupied and laughing inappropriately. Patient talking in whispers. Asks for Geodon to be further increased to 80 mg b.i.d. and wants to discuss discharge, agreeing that this still needs to be further planned out -will continue to titrate Geodon -will hold off other medications for now since she has been off meds a couple years and not sure what she needs Plan: CV Q 15 minute checks Titrate Geodon; patient was on 80 mg b.i.d. in the past Will hold off with other medications as patient has been off all medications for 2 years (BuSpar, Wellbutrin, Lyrica; reported history of primidone but not sure why) Continue to get collateral Refer to OP psychiatrist/ therapist Patient educated on: diagnosis, medication risk/benefits and therapeutic strategies Informed Consent: understands, does not understand and further education needed Reason for continued inpatient stay Substantial Risk for: rapid decompensation Time Spent With Patient Time: Total time managing care of this patient today ____ minutes.
[2025-08-25 20:00] VITALS: BP 138/67; PULSE 92; RESP 16; TEMP 36.9; O2SAT 97
[2025-08-25] MEDS: traZODone HCL 25 MG HALFTAB PO (21:47)
[2025-08-26 08:00] VITALS: BP 118/58; PULSE 72; RESP 18; TEMP 36.7; O2SAT 97
[2025-08-26] MEDS: Nicotine 21 MG PATCH.TD24 TRANSDERMA (08:32)
[2025-08-26] MEDS: Lidocaine 4 % Patch ADH..PATCH 2 PATCH TRANSDERMA (08:34)
--- NOTE | 2025-08-26 11:52 | P.PNPSI_ITS ---
Subjective Subjective Date of Service: 08/26/25 Reason For Visit: F31.9 Interim History: Met with patient; discussed with team Patient remains guarded and talking softly but able to discuss medications. She remains agreeable to Geodon being increased to 80 mg twice a day. Discussed bupropion which she said she was on for years . Currently she says that her mood is good and denies depression. Discussed restart his medication and patient agrees to wait for now while Geodon is being titrated and then to see later on if she still feel she needs it. Mental Status Exam Mental Status Exam Narrative: Pt is alert and oriented; behavior is quiet, keeping to herself, guarded but also cooperative, calm on approach; some disorganization in laughing inappropriately either to credit underwriter or to herself; patient is not in distress; dressed in casual attire with pink dyed hair, unkempt; mood is described as okay and affect anxious, apprehensive; eye contact appropriate; Speech is quiet, sometimes whisper, but normal rate, and prosody; not pressured; no psychomotor agitation/retardation present; thought process is goal directed but distracted and with latency; Thought content seems to be on discharge however patient internally preoccupied and laughing to unknown things; denies any SI/HI. Denies AVH but does seem internally preoccupied. Patients insight and judgment impaired though improving Diagnostics Vital Signs (24Hr): Vital Signs - 24 hr 08/25/25 20:00 08/26/25 08:00 Temperature 98.4 F 98.0 F Pulse Rate 92 72 Respiratory Rate 16 18 Blood Pressure 138/67 118/58 L Pulse Oximetry 97 97 Oxygen Delivery Method Room Air Room Air BMI result Body Mass Index 20.4 Labs 08/22/25 07:38 08/22/25 07:38 Labs: Laboratory Results - last 48 hr 08/22/25 07:38 Homocysteine 19.1 H Medications Medications Current Medications Acetaminophen (Acetaminophen 325 Mg Tablet) 650 mg PO Q6H PRN PRN Reason: Headache/Pain, Scale 1-10 Last Admin: 08/24/25 21:32 Dose: 650 mg Al Hydroxide/Mg Hydroxide (Magnesium Hydrox/Alum Hydrox 30 Ml Oral.Susp) 30 ml PO Q6H PRN PRN Reason: Heartburn/Nausea Benzocaine (Throat Lozenge, Medicated Lozenge) 1 lozenge MUCOUS MEM Q2H PRN PRN Reason: Sore Throat Last Admin: 08/23/25 08:30 Dose: 1 lozenge Cyanocobalamin (Cyanocobalamin (Vitamin B-12) 1,000 Mcg Tablet) 1,000 mcg PO DAILY [facility] Last Admin: 08/26/25 08:33 Dose: 1,000 mcg Dextrose (Dextrose 50 % 25 Gm/50 Ml Syringe) 25 gm IVPUSH Q15M PRN; Protocol PRN Reason: per Hypoglycemia Standing Ord. Glucose (Glucose Gel 15 Gm Gel..Gram.) 15 gm PO Q15M PRN; Protocol PRN Reason: per Hypoglycemia Standing Ord. Hydroxyzine HCl (Hydroxyzine Hcl 25 Mg Tablet) 25 mg PO Q6H PRN PRN Reason: mild anxiety Last Admin: 08/26/25 08:37 Dose: 25 mg Ibuprofen (Ibuprofen 600 Mg Tablet) 600 mg PO Q8H PRN PRN Reason: severe back pain Last Admin: 08/26/25 08:37 Dose: 600 mg Lidocaine (Lidocaine 4 % Patch Adh..Patch) 2 patch TRANSDERMA DAILY [facility]; Protocol Last Admin: 08/26/25 08:34 Dose: 2 patch Loratadine (Loratadine 10 Mg Tablet) 10 mg PO DAILY [facility] Last Admin: 08/26/25 08:33 Dose: 10 mg Magnesium Hydroxide (Milk Of Magnesia 30 Ml Oral.Susp) 30 ml PO DAILY PRN PRN Reason: Constipation Nicotine (Nicotine 21 Mg Patch.Td24) 21 mg TRANSDERMA DAILY [facility] Last Admin: 08/26/25 08:32 Dose: 21 mg Nicotine Polacrilex (Nicotine Polacrilex 2 Mg Gum) 4 mg BUCCAL Q2H PRN PRN Reason: Nicotine Cravings Last Admin: 08/25/25 22:27 Dose: 4 mg Sodium Chloride (Sodium Chloride 0.65 % Nasal 44 Ml Sprbtl) 1 spray NOSTRIL-B Q4H PRN PRN Reason: Congestion Last Admin: 08/22/25 17:43 Dose: 1 spray Trazodone HCl (Trazodone Hcl 50 Mg Tablet) 50 mg PO BEDTIME MRX1 PRN PRN Reason: Insomnia Trazodone HCl (Trazodone Hcl 25 Mg Halftab) 25 mg PO BEDTIME [facility] Last Admin: 08/25/25 21:47 Dose: 25 mg Ziprasidone (Ziprasidone 80 Mg Capsule) 80 mg PO BID@0900,1700 [facility] Allergies Allergies Allergy/AdvReac Type Severity Reaction Status Date / Time azithromycin Allergy Unknown Unknown Verified 08/20/25 17:41 latex Allergy Unknown Unknown Verified 08/20/25 17:41 Penicillins (PCN) Allergy Unknown Unknown Verified 08/20/25 17:41 Sulfa (Sulfonamide Allergy Unknown Unknown Verified 08/20/25 17:41 Antibiotics) Assessment & Plan Assessment & Plan (1) Bipolar disorder, curr episode depressed, severe, w/psychotic features: Status: Acute Code(s): F31.5 - Bipolar disorder, current episode depressed, severe, with psychotic features (2) History of stroke: Status: Acute Code(s): Z86.73 - Personal history of transient ischemic attack (TIA), and cerebral infarction without residual deficits (3) Hypokalemia: Status: Acute Code(s): E87.6 - Hypokalemia (4) B12 deficiency: Status: Acute Code(s): E53.8 - Deficiency of other specified B group vitamins Plan HPI: Patient is a 59 year old female who arrived to [facility] via family transportation for psychiatric evaluation. Precipitating Factors: Per report, pt wants an evaluation because she wants to be back on medications. Pt reported to carry bipolar diagnosis, has stopped taking meds for psychiatric and medical conditions for about 2 years. Formulation/clinical reasoning: disorganized, paranoid, impaired judgment and insight, not even recognized psychiatric symptoms, she is depressed, not taking care of self, not on meds for a couple years, making unsafe choices, not shower or eating normally, decompensated over time, not on meds either for psychiatric or medical conditions which put her self at risk, no current OP providers. Hx of Bipolar, DM II, HTN, CVA which she not even fully remember. Given the above information, patient would benefit to be in restrictive environment for own safety, medication management and refer patient to OP providers for aftercare. Hospital course: 08/21/25: Restart on Geodon 20mg BID, given with food. Will titrate up. Report was taking 80mg in the past. Motrin and Lidocaine patch for back pain Vitamin B12 1,000mg daily 08/22/25: Patient slept for 6 hours, was meds compliant without side effects. Tolerate well with Geodon. Denies mental health symptoms, poor insight and judgment. Patient reports she was given chewable pink color medication- adderall in the ED but not sure the name of medications but she thinks she was given adderall. Patient reports that she was given Adderall in 2015. It was reported to SW on Sunday from her son that it was suspected that patient had hx of overused her adderall. Patient is quiet but appear having racing thoughts. Report back and R hip pain. Reviewed medication plan, patient agrees to take low dose of trazodone for insomnia. Given Ensure BID for low weight, BMI. Patient appears to be disorganized. 08/23/25: Patient slept better, has been eating good. Blood sugar is within normal limits was slightly elevated. Point of care was DC'd. Patient asked about her insurance, wants Geodon to be increased. Perseverative about Geodon 80 mg which she was on in the past. Reports running nose/allergy symptoms. Continued to denies signs symptoms, poor insight and judgment, quiet, visible, compliant with medications. She is disorganized but slightly improved. Increase Geodon up to 60mg total daily in divided dose. Give with food. Claritin 10mg daily for allergy. 08/24 Patient reports she is Sleeping through the night. She remains a limited historian, not remembering much. When asked about manic episodes she says she will have 2 days of not sleeping and then refers to her struggles in high school where she was late to school many days because of oversleeping... She thinks she may have gone as much as 5 days without sleeping at different times in her life. When asked about other manic symptoms, patient starts to inappropriately laugh in a hilarious way saying that she does excess food shopping, nothing perishable... It is difficult to get specifics and patient continues to laugh, somewhat uncontrollably at the questions. Roving Inspector discussed medication and patient patient Says Geodon ?Makes me feel better? and on inquiry agrees that it helps her Think more clearly; she agrees to titrated to 80 mg b.i.d. Denies hx of AVH Roving Inspector reviewed medication list sent in documentation from [place] [facility], however patient is unaware of them: Primodine 50mg qhs; Denies any hx of seizure; had a stroke 5 years, hard to right (rt side); Buspar 10mg TID Wellbutren ER 100mg Lyrica 75 Bid Geodon 80 mg b.i.d. From chart, and collateral patient's son says she does not eat in a healthy way, consumes excess amount of sugar and only drinks sugared drinks Family reports patient has not been attending to any ADLs though patient says otherwise Roving Inspector asked about why she was putting salt around the toilet and she says it is just to clean the area Denies any history of alcoholism though collateral strongly says otherwise Family concerned that perhaps patient's account information has been stolen the money was being consistently withdrawn Hx of Hypokelemina: WNL in the ED.Will check lytes on 08/22/25. B12 deficiency? Homocystine labs pending Methylmalonic acid labs pending Impression: Patient seems to have cognitive impairment, not sure if it is due psychosis, history of stroke, burgeoning dementia or history of chronic alcoholism (or combination); B12 deficiency with labs pending. Patient is in good behavioral and impulse control. Though with limited insight, she is amenable to medication regimen. Patient's sons are trying to help with aftercare 08/25 Patient reports she is good and denies psychiatric symptoms including AVH or paranoid ideations; however remains guarded and appears to be internally preoccupied and laughing inappropriately. Patient talking in whispers. Asks for Geodon to be further increased to 80 mg b.i.d. and wants to discuss discharge, agreeing that this still needs to be further planned out -will continue to titrate Geodon -will hold off other medications for now since she has been off meds a couple years and not sure what she needs 08/26 remains odd, internally preoccupied and with some speech latency; however discussing medications appropriately and agrees to increasing Geodon; will consider whether not to restart Wellbutrin Plan: CV Q 15 minute checks Increase to Geodon 80 mg b.i.d.(patient's past home dose) Will hold off with other medications as patient has been off all medications for 2 years (BuSpar, Wellbutrin, Lyrica; reported history of primidone but not sure why) Continue to get collateral Refer to OP psychiatrist/ therapist Patient educated on: diagnosis and medication risk/benefits Informed Consent: understands and further education needed Reason for continued inpatient stay Substantial Risk for: rapid decompensation Time Spent With Patient Time: Total time managing care of this patient today ____ minutes.
[2025-08-26 20:00] VITALS: BP 108/52; PULSE 75; RESP 18; TEMP 36.6; O2SAT 96
[2025-08-26] MEDS: traZODone HCL 25 MG HALFTAB PO (21:43)
--- NOTE | 2025-08-27 | ECG_ITS ---
Test Reason : qtc Blood Pressure : */* mmHG Vent. Rate : 81 BPM Atrial Rate : 81 BPM P-R Int : 166 ms QRS Dur : 84 ms QT Int : 362 ms P-R-T Axes : 53 53 54 degrees QTcB Int : 420 ms Normal sinus rhythm Normal ECG No previous ECGs available Referred By: Mega Starkey Electronically Signed By: LOIDA VERDIN MD
[2025-08-27 07:00] VITALS: BMI 21.2
[2025-08-27 07:46] VITALS: BP 100/56; PULSE 70; TEMP 36.4; O2SAT 97
--- NOTE | 2025-08-27 09:26 | P.PNPSI_ITS ---
Subjective Subjective Date of Service: 08/27/25 Reason For Visit: F31.9 Subjective Notes: Conditional Voluntary Interim History: Patient found standing in her room. She notes that she has been sleeping and eating well. She notes chronic, persistent lower back and right hip pain. She denies anxiety, depression, SI/HI/AVH. Medication Compliance: Yes Side effects from medications: No Attending Groups: Intermittent Review of Systems Acute medical concerns: No Review of Systems Review of Systems Musc: Reports lower back and right hip pain Mental Status Exam Mental Status Exam Narrative: Appearance: Casually dressed, appropriate hygiene, unkempt hair, Behavior: Calm and cooperative throughout the interview. Quiet, keeping to herself, guarded. Eye contact is appropriate, and there are no signs of psychomotor agitation or retardation Speech: Quiet, sometimes whisper, normal volume and prosody Thought process: Logical and goal-directed Thought content: Future oriented no self-harming thoughts Mood: Calm Affect: Restricted SI:denies HI:denies VH/AH:none Delusions: None Insight/judgment: Fair insight and judgment Memory/cog: Alert, oriented x 4. grossly intact to conversational testing Diagnostics Vital Signs (24Hr): Vital Signs - 24 hr 08/26/25 20:00 08/27/25 07:46 Temperature 97.9 F 97.6 F Pulse Rate 75 70 Respiratory Rate 18 Blood Pressure 108/52 L 100/56 L Pulse Oximetry 96 97 Oxygen Delivery Method Room Air Room Air BMI result Body Mass Index 20.4 Labs 08/22/25 07:38 08/22/25 07:38 Labs: Laboratory Results - last 48 hr 08/22/25 07:38 Methylmalonic Acid 947 H Homocysteine 19.1 H Medications Medications Current Medications Acetaminophen (Acetaminophen 325 Mg Tablet) 650 mg PO Q6H PRN PRN Reason: Headache/Pain, Scale 1-10 Last Admin: 08/24/25 21:32 Dose: 650 mg Al Hydroxide/Mg Hydroxide (Magnesium Hydrox/Alum Hydrox 30 Ml Oral.Susp) 30 ml PO Q6H PRN PRN Reason: Heartburn/Nausea Benzocaine (Throat Lozenge, Medicated Lozenge) 1 lozenge MUCOUS MEM Q2H PRN PRN Reason: Sore Throat Last Admin: 08/23/25 08:30 Dose: 1 lozenge Cyanocobalamin (Cyanocobalamin (Vitamin B-12) 1,000 Mcg Tablet) 1,000 mcg PO DAILY [facility] Last Admin: 08/27/25 08:22 Dose: 1,000 mcg Dextrose (Dextrose 50 % 25 Gm/50 Ml Syringe) 25 gm IVPUSH Q15M PRN; Protocol PRN Reason: per Hypoglycemia Standing Ord. Glucose (Glucose Gel 15 Gm Gel..Gram.) 15 gm PO Q15M PRN; Protocol PRN Reason: per Hypoglycemia Standing Ord. Hydroxyzine HCl (Hydroxyzine Hcl 25 Mg Tablet) 25 mg PO Q6H PRN PRN Reason: mild anxiety Last Admin: 08/27/25 05:47 Dose: 25 mg Ibuprofen (Ibuprofen 600 Mg Tablet) 600 mg PO Q8H PRN PRN Reason: severe back pain Last Admin: 08/27/25 05:47 Dose: 600 mg Lidocaine (Lidocaine 4 % Patch Adh..Patch) 2 patch TRANSDERMA DAILY [facility]; Protocol Last Admin: 08/26/25 08:34 Dose: 2 patch Loratadine (Loratadine 10 Mg Tablet) 10 mg PO DAILY [facility] Last Admin: 08/27/25 08:22 Dose: 10 mg Magnesium Hydroxide (Milk Of Magnesia 30 Ml Oral.Susp) 30 ml PO DAILY PRN PRN Reason: Constipation Nicotine (Nicotine 21 Mg Patch.Td24) 21 mg TRANSDERMA DAILY [facility] Last Admin: 08/26/25 08:32 Dose: 21 mg Nicotine Polacrilex (Nicotine Polacrilex 2 Mg Gum) 4 mg BUCCAL Q2H PRN PRN Reason: Nicotine Cravings Last Admin: 08/25/25 22:27 Dose: 4 mg Sodium Chloride (Sodium Chloride 0.65 % Nasal 44 Ml Sprbtl) 1 spray NOSTRIL-B Q4H PRN PRN Reason: Congestion Last Admin: 08/22/25 17:43 Dose: 1 spray Trazodone HCl (Trazodone Hcl 50 Mg Tablet) 50 mg PO BEDTIME MRX1 PRN PRN Reason: Insomnia Trazodone HCl (Trazodone Hcl 25 Mg Halftab) 25 mg PO BEDTIME [facility] Last Admin: 08/26/25 21:43 Dose: 25 mg Ziprasidone (Ziprasidone 80 Mg Capsule) 80 mg PO BID@0900,1700 [facility] Last Admin: 08/27/25 08:22 Dose: 80 mg Allergies Allergies Allergy/AdvReac Type Severity Reaction Status Date / Time azithromycin Allergy Unknown Unknown Verified 08/20/25 17:41 latex Allergy Unknown Unknown Verified 08/20/25 17:41 Penicillins (PCN) Allergy Unknown Unknown Verified 08/20/25 17:41 Sulfa (Sulfonamide Allergy Unknown Unknown Verified 08/20/25 17:41 Antibiotics) Assessment & Plan Assessment & Plan (1) Bipolar disorder, curr episode depressed, severe, w/psychotic features: Status: Acute Code(s): F31.5 - Bipolar disorder, current episode depressed, severe, with psychotic features (2) History of stroke: Status: Acute Code(s): Z86.73 - Personal history of transient ischemic attack (TIA), and cerebral infarction without residual deficits (3) Hypokalemia: Status: Acute Code(s): E87.6 - Hypokalemia (4) B12 deficiency: Status: Acute Code(s): E53.8 - Deficiency of other specified B group vitamins Plan HPI: Patient is a 59 year old female who arrived to [facility] via family transportation for psychiatric evaluation. Precipitating Factors: Per report, pt wants an evaluation because she wants to be back on medications. Pt reported to carry bipolar diagnosis, has stopped taking meds for psychiatric and medical conditions for about 2 years. Formulation/clinical reasoning: disorganized, paranoid, impaired judgment and insight, not even recognized psychiatric symptoms, she is depressed, not taking care of self, not on meds for a couple years, making unsafe choices, not shower or eating normally, decompensated over time, not on meds either for psychiatric or medical conditions which put her self at risk, no current OP providers. Hx of Bipolar, DM II, HTN, CVA which she not even fully remember. Given the above information, patient would benefit to be in restrictive environment for own safety, medication management and refer patient to OP providers for aftercare. Hospital course: 08/21/25: Restart on Geodon 20mg BID, given with food. Will titrate up. Report was taking 80mg in the past. Motrin and Lidocaine patch for back pain Vitamin B12 1,000mg daily 08/22/25: Patient slept for 6 hours, was meds compliant without side effects. Tolerate well with Geodon. Denies mental health symptoms, poor insight and judgment. Patient reports she was given chewable pink color medication- adderall in the ED but not sure the name of medications but she thinks she was given adderall. Patient reports that she was given Adderall in 2016. It was reported to SW on Sunday from her son that it was suspected that patient had hx of overused her adderall. Patient is quiet but appear having racing thoughts. Report back and R hip pain. Reviewed medication plan, patient agrees to take low dose of trazodone for insomnia. Given Ensure BID for low weight, BMI. Patient appears to be disorganized. 08/23/25: Patient slept better, has been eating good. Blood sugar is within normal limits was slightly elevated. Point of care was DC'd. Patient asked about her insurance, wants Geodon to be increased. Perseverative about Geodon 80 mg which she was on in the past. Reports running nose/allergy symptoms. Continued to denies signs symptoms, poor insight and judgment, quiet, visible, compliant with medications. She is disorganized but slightly improved. Increase Geodon up to 60mg total daily in divided dose. Give with food. Claritin 10mg daily for allergy. 08/24 Patient reports she is Sleeping through the night. She remains a limited historian, not remembering much. When asked about manic episodes she says she will have 2 days of not sleeping and then refers to her struggles in high school where she was late to school many days because of oversleeping... She thinks she may have gone as much as 5 days without sleeping at different times in her life. When asked about other manic symptoms, patient starts to inappropriately laugh in a hilarious way saying that she does excess food shopping, nothing perishable... It is difficult to get specifics and patient continues to laugh, somewhat uncontrollably at the questions. Piston Maker discussed medication and patient patient Says Geodon ?Makes me feel better? and on inquiry agrees that it helps her Think more clearly; she agrees to titrated to 80 mg b.i.d. Denies hx of AVH Piston Maker reviewed medication list sent in documentation from [place] [facility], however patient is unaware of them: Primodine 50mg qhs; Denies any hx of seizure; had a stroke 5 years, hard to right (rt side); Buspar 10mg TID Wellbutren ER 100mg Lyrica 75 Bid Geodon 80 mg b.i.d. From chart, and collateral patient's son says she does not eat in a healthy way, consumes excess amount of sugar and only drinks sugared drinks Family reports patient has not been attending to any ADLs though patient says otherwise Piston Maker asked about why she was putting salt around the toilet and she says it is just to clean the area Denies any history of alcoholism though collateral strongly says otherwise Family concerned that perhaps patient's account information has been stolen the money was being consistently withdrawn Hx of Hypokelemina: WNL in the ED.Will check lytes on 08/22/25. B12 deficiency? Homocystine labs pending Methylmalonic acid labs pending Impression: Patient seems to have cognitive impairment, not sure if it is due psychosis, history of stroke, burgeoning dementia or history of chronic alcoholism (or combination); B12 deficiency with labs pending. Patient is in good behavioral and impulse control. Though with limited insight, she is amenable to medication regimen. Patient's sons are trying to help with aftercare 08/25 Patient reports she is good and denies psychiatric symptoms including AVH or paranoid ideations; however remains guarded and appears to be internally preoccupied and laughing inappropriately. Patient talking in whispers. Asks for Geodon to be further increased to 80 mg b.i.d. and wants to discuss discharge, agreeing that this still needs to be further planned out -will continue to titrate Geodon -will hold off other medications for now since she has been off meds a couple years and not sure what she needs 08/26 remains odd, internally preoccupied and with some speech latency; however discussing medications appropriately and agrees to increasing Geodon; will consider whether not to restart Wellbutrin 08/27: Patient found standing in her room. She notes that she has been sleeping and eating well. She notes chronic, persistent lower back and right hip pain. Calm and cooperative, guarded. She denies anxiety, depression, SI/HI/AVH. Continue current treatment regimen. EKG today with NSR/QTc. Plan: CV Q 15 minute checks Increase to Geodon 80 mg b.i.d.(patient's past home dose) Will hold off with other medications as patient has been off all medications for 2 years (BuSpar, Wellbutrin, Lyrica; reported history of primidone but not sure why) Continue to get collateral Refer to OP psychiatrist/ therapist Patient educated on: therapeutic strategies Reason for continued inpatient stay Substantial Risk for: rapid decompensation Time Spent With Patient Time: Total time managing care of this patient today ____ minutes.
[2025-08-27] MEDS: Nicotine 21 MG PATCH.TD24 TRANSDERMA (10:18)
[2025-08-27] MEDS: Lidocaine 4 % Patch ADH..PATCH 2 PATCH TRANSDERMA (10:20)
[2025-08-27 20:00] VITALS: BP 98/49; PULSE 82; RESP 18; TEMP 36.9; O2SAT 95
[2025-08-27] MEDS: traZODone HCL 25 MG HALFTAB PO (21:07)
[2025-08-28 08:00] VITALS: BP 113/68; PULSE 84; TEMP 36.9; O2SAT 99
[2025-08-28] MEDS: Nicotine 21 MG PATCH.TD24 TRANSDERMA (08:54)
[2025-08-28] MEDS: Lidocaine 4 % Patch ADH..PATCH 2 PATCH TRANSDERMA (08:56)
[2025-08-28 20:00] VITALS: BP 120/58; PULSE 84; RESP 15; TEMP 36.8; O2SAT 94
[2025-08-28] MEDS: traZODone HCL 25 MG HALFTAB PO (20:31)
--- NOTE | 2025-08-28 21:01 | P.PNPSI_ITS ---
Subjective Subjective Date of Service: 08/28/25 Reason For Visit: F31.9 Interim History: Met with patient; discussed with team Patient remains guarded, laughing to herself inappropriately; when asked about this she said she is just thinking about funny things but continues to deny any AVH. Says mood is good. Otherwise difficult with which to engage Mental Status Exam Mental Status Exam Narrative: Pt is alert and oriented; behavior is quiet, keeping to herself, guarded but also cooperative, calm on approach; some disorganization in laughing inappropriately either to check writer salesperson or to herself; patient is not in distress; dressed in casual attire with pink dyed hair, unkempt; mood is described as okay and affect anxious, apprehensive; eye contact appropriate; Speech is quiet, sometimes whisper, but normal rate, and prosody; not pressured; no psychomotor agitation/retardation present; thought process is goal directed but distracted and with latency; Thought content seems to be on discharge however patient internally preoccupied and laughing to unknown things; denies any SI/HI. Denies AVH but does seem internally preoccupied. Patients insight and judgment impaired though improving Diagnostics Vital Signs (24Hr): Vital Signs - 24 hr 08/28/25 08:00 08/28/25 20:00 Temperature 98.4 F 98.2 F Pulse Rate 84 84 Respiratory Rate 15 Blood Pressure 113/68 120/58 L Pulse Oximetry 99 94 Oxygen Delivery Method Room Air BMI result Body Mass Index 21.2 Labs 08/22/25 07:38 08/22/25 07:38 Labs: Laboratory Results - last 48 hr 08/22/25 07:38 Methylmalonic Acid 947 H Medications Medications Current Medications Acetaminophen (Acetaminophen 325 Mg Tablet) 650 mg PO Q6H PRN PRN Reason: Headache/Pain, Scale 1-10 Last Admin: 08/28/25 20:31 Dose: 650 mg Al Hydroxide/Mg Hydroxide (Magnesium Hydrox/Alum Hydrox 30 Ml Oral.Susp) 30 ml PO Q6H PRN PRN Reason: Heartburn/Nausea Benzocaine (Throat Lozenge, Medicated Lozenge) 1 lozenge MUCOUS MEM Q2H PRN PRN Reason: Sore Throat Last Admin: 08/23/25 08:30 Dose: 1 lozenge Cyanocobalamin (Cyanocobalamin (Vitamin B-12) 1,000 Mcg Tablet) 1,000 mcg PO DAILY [facility] Last Admin: 08/28/25 08:56 Dose: 1,000 mcg Dextrose (Dextrose 50 % 25 Gm/50 Ml Syringe) 25 gm IVPUSH Q15M PRN; Protocol PRN Reason: per Hypoglycemia Standing Ord. Glucose (Glucose Gel 15 Gm Gel..Gram.) 15 gm PO Q15M PRN; Protocol PRN Reason: per Hypoglycemia Standing Ord. Hydroxyzine HCl (Hydroxyzine Hcl 25 Mg Tablet) 25 mg PO Q6H PRN PRN Reason: mild anxiety Last Admin: 08/28/25 16:26 Dose: 25 mg Ibuprofen (Ibuprofen 600 Mg Tablet) 600 mg PO Q8H PRN PRN Reason: severe back pain Last Admin: 08/28/25 20:30 Dose: 600 mg Lidocaine (Lidocaine 4 % Patch Adh..Patch) 2 patch TRANSDERMA DAILY [facility]; Protocol Last Admin: 08/28/25 08:56 Dose: 2 patch Loratadine (Loratadine 10 Mg Tablet) 10 mg PO DAILY [facility] Last Admin: 08/28/25 08:56 Dose: 10 mg Magnesium Hydroxide (Milk Of Magnesia 30 Ml Oral.Susp) 30 ml PO DAILY PRN PRN Reason: Constipation Nicotine (Nicotine 21 Mg Patch.Td24) 21 mg TRANSDERMA DAILY [facility] Last Admin: 08/28/25 08:54 Dose: 21 mg Nicotine Polacrilex (Nicotine Polacrilex 2 Mg Gum) 4 mg BUCCAL Q2H PRN PRN Reason: Nicotine Cravings Last Admin: 08/28/25 10:00 Dose: 4 mg Sodium Chloride (Sodium Chloride 0.65 % Nasal 44 Ml Sprbtl) 1 spray NOSTRIL-B Q4H PRN PRN Reason: Congestion Last Admin: 08/22/25 17:43 Dose: 1 spray Trazodone HCl (Trazodone Hcl 50 Mg Tablet) 50 mg PO BEDTIME MRX1 PRN PRN Reason: Insomnia Trazodone HCl (Trazodone Hcl 25 Mg Halftab) 25 mg PO BEDTIME [facility] Last Admin: 08/28/25 20:31 Dose: 25 mg Ziprasidone (Ziprasidone 80 Mg Capsule) 80 mg PO BID@0900,1700 [facility] Last Admin: 08/28/25 16:24 Dose: 80 mg Allergies Allergies Allergy/AdvReac Type Severity Reaction Status Date / Time azithromycin Allergy Unknown Unknown Verified 08/20/25 17:41 latex Allergy Unknown Unknown Verified 08/20/25 17:41 Penicillins (PCN) Allergy Unknown Unknown Verified 08/20/25 17:41 Sulfa (Sulfonamide Allergy Unknown Unknown Verified 08/20/25 17:41 Antibiotics) Assessment & Plan Assessment & Plan (1) Bipolar disorder, curr episode depressed, severe, w/psychotic features: Status: Acute Code(s): F31.5 - Bipolar disorder, current episode depressed, severe, with psychotic features (2) History of stroke: Status: Acute Code(s): Z86.73 - Personal history of transient ischemic attack (TIA), and cerebral infarction without residual deficits (3) Hypokalemia: Status: Acute Code(s): E87.6 - Hypokalemia (4) B12 deficiency: Status: Acute Code(s): E53.8 - Deficiency of other specified B group vitamins Plan HPI: Patient is a 59 year old female who arrived to [facility] via family transportation for psychiatric evaluation. Precipitating Factors: Per report, pt wants an evaluation because she wants to be back on medications. Pt reported to carry bipolar diagnosis, has stopped taking meds for psychiatric and medical conditions for about 2 years. Formulation/clinical reasoning: disorganized, paranoid, impaired judgment and insight, not even recognized psychiatric symptoms, she is depressed, not taking care of self, not on meds for a couple years, making unsafe choices, not shower or eating normally, decompensated over time, not on meds either for psychiatric or medical conditions which put her self at risk, no current OP providers. Hx of Bipolar, DM II, HTN, CVA which she not even fully remember. Given the above information, patient would benefit to be in restrictive environment for own safety, medication management and refer patient to OP providers for aftercare. Hospital course: 08/21/25: Restart on Geodon 20mg BID, given with food. Will titrate up. Report was taking 80mg in the past. Motrin and Lidocaine patch for back pain Vitamin B12 1,000mg daily 08/22/25: Patient slept for 6 hours, was meds compliant without side effects. Tolerate well with Geodon. Denies mental health symptoms, poor insight and judgment. Patient reports she was given chewable pink color medication- adderall in the ED but not sure the name of medications but she thinks she was given adderall. Patient reports that she was given Adderall in 2016. It was reported to SW on Sunday from her son that it was suspected that patient had hx of overused her adderall. Patient is quiet but appear having racing thoughts. Report back and R hip pain. Reviewed medication plan, patient agrees to take low dose of trazodone for insomnia. Given Ensure BID for low weight, BMI. Patient appears to be disorganized. 08/23/25: Patient slept better, has been eating good. Blood sugar is within normal limits was slightly elevated. Point of care was DC'd. Patient asked about her insurance, wants Geodon to be increased. Perseverative about Geodon 80 mg which she was on in the past. Reports running nose/allergy symptoms. Continued to denies signs symptoms, poor insight and judgment, quiet, visible, compliant with medications. She is disorganized but slightly improved. Increase Geodon up to 60mg total daily in divided dose. Give with food. Claritin 10mg daily for allergy. 08/24 Patient reports she is Sleeping through the night. She remains a limited historian, not remembering much. When asked about manic episodes she says she will have 2 days of not sleeping and then refers to her struggles in high school where she was late to school many days because of oversleeping... She thinks she may have gone as much as 5 days without sleeping at different times in her life. When asked about other manic symptoms, patient starts to inappropriately laugh in a hilarious way saying that she does excess food shopping, nothing perishable... It is difficult to get specifics and patient continues to laugh, somewhat uncontrollably at the questions. Aircraft Part Assembler discussed medication and patient patient Says Geodon ?Makes me feel better? and on inquiry agrees that it helps her Think more clearly; she agrees to titrated to 80 mg b.i.d. Denies hx of AVH Aircraft Part Assembler reviewed medication list sent in documentation from [place] [facility], however patient is unaware of them: Primodine 50mg qhs; Denies any hx of seizure; had a stroke 5 years, hard to right (rt side); Buspar 10mg TID Wellbutren ER 100mg Lyrica 75 Bid Geodon 80 mg b.i.d. From chart, and collateral patient's son says she does not eat in a healthy way, consumes excess amount of sugar and only drinks sugared drinks Family reports patient has not been attending to any ADLs though patient says otherwise Aircraft Part Assembler asked about why she was putting salt around the toilet and she says it is just to clean the area Denies any history of alcoholism though collateral strongly says otherwise Family concerned that perhaps patient's account information has been stolen the money was being consistently withdrawn Hx of Hypokelemina: WNL in the ED.Will check lytes on 08/22/25. B12 deficiency? Homocystine labs pending Methylmalonic acid labs pending Impression: Patient seems to have cognitive impairment, not sure if it is due psychosis, history of stroke, burgeoning dementia or history of chronic alcoholism (or combination); B12 deficiency with labs pending. Patient is in good behavioral and impulse control. Though with limited insight, she is amenable to medication regimen. Patient's sons are trying to help with aftercare 08/25 Patient reports she is good and denies psychiatric symptoms including AVH or paranoid ideations; however remains guarded and appears to be internally preoccupied and laughing inappropriately. Patient talking in whispers. Asks for Geodon to be further increased to 80 mg b.i.d. and wants to discuss discharge, agreeing that this still needs to be further planned out -will continue to titrate Geodon -will hold off other medications for now since she has been off meds a couple years and not sure what she needs 08/26 remains odd, internally preoccupied and with some speech latency; however discussing medications appropriately and agrees to increasing Geodon; will consider whether not to restart Wellbutrin 08/27: Patient found standing in her room. She notes that she has been sleeping and eating well. She notes chronic, persistent lower back and right hip pain. Calm and cooperative, guarded. She denies anxiety, depression, SI/HI/AVH. Continue current treatment regimen. EKG today with NSR/QTc. Plan: CV Q 15 minute checks Increase to Geodon 80 mg b.i.d.(patient's past home dose) Will hold off with other medications as patient has been off all medications for 2 years (BuSpar, Wellbutrin, Lyrica; reported history of primidone but not sure why) Continue to get collateral Refer to OP psychiatrist/ therapist Patient educated on: diagnosis Informed Consent: understands, does not understand and further education needed Reason for continued inpatient stay Substantial Risk for: rapid decompensation Time Spent With Patient Time: Total time managing care of this patient today ____ minutes.
[2025-08-29 09:00] VITALS: BP 108/58; PULSE 67; RESP 16; TEMP 36.4; O2SAT 98
[2025-08-29] MEDS: Nicotine 21 MG PATCH.TD24 TRANSDERMA (09:13)
[2025-08-29] MEDS: Lidocaine 4 % Patch ADH..PATCH 2 PATCH TRANSDERMA (09:14)
--- NOTE | 2025-08-29 11:25 | P.PNPSI_ITS ---
Subjective Subjective Date of Service: 08/29/25 Reason For Visit: F31.9 Interim History: Met with patient; discussed with team No change in presentation, patient talking quietly, smiling to herself seemingly inappropriately . Says she is good and that the medications are fine. Patient asked about discharge next week Mental Status Exam Mental Status Exam Narrative: Pt is alert and oriented; behavior is quiet, keeping to herself, guarded but also cooperative, calm on approach; some disorganization in laughing inappropriately either to greeting card writer or to herself; patient is not in distress; dressed in casual attire with pink dyed hair, unkempt; mood is described as okay and affect anxious, apprehensive; eye contact appropriate; Speech is quiet, sometimes whisper, but normal rate, and prosody; not pressured; no psychomotor agitation/retardation present; thought process is goal directed but distracted and with latency; Thought content seems to be on discharge however patient internally preoccupied and laughing to unknown things; denies any SI/HI. Denies AVH but does seem internally preoccupied. Patients insight and judgment impaired though improving Diagnostics Vital Signs (24Hr): Vital Signs - 24 hr 08/28/25 20:00 08/29/25 09:00 Temperature 98.2 F 97.6 F Pulse Rate 84 67 Respiratory Rate 15 16 Blood Pressure 120/58 L 108/58 L Pulse Oximetry 94 98 Oxygen Delivery Method Room Air BMI result Body Mass Index 21.2 Labs 08/22/25 07:38 08/22/25 07:38 Medications Medications Current Medications Acetaminophen (Acetaminophen 325 Mg Tablet) 650 mg PO Q6H PRN PRN Reason: Headache/Pain, Scale 1-10 Last Admin: 08/29/25 09:12 Dose: 650 mg Al Hydroxide/Mg Hydroxide (Magnesium Hydrox/Alum Hydrox 30 Ml Oral.Susp) 30 ml PO Q6H PRN PRN Reason: Heartburn/Nausea Benzocaine (Throat Lozenge, Medicated Lozenge) 1 lozenge MUCOUS MEM Q2H PRN PRN Reason: Sore Throat Last Admin: 08/23/25 08:30 Dose: 1 lozenge Cyanocobalamin (Cyanocobalamin (Vitamin B-12) 1,000 Mcg Tablet) 1,000 mcg PO DAILY CAL Last Admin: 08/29/25 09:13 Dose: 1,000 mcg Dextrose (Dextrose 50 % 25 Gm/50 Ml Syringe) 25 gm IVPUSH Q15M PRN; Protocol PRN Reason: per Hypoglycemia Standing Ord. Glucose (Glucose Gel 15 Gm Gel..Gram.) 15 gm PO Q15M PRN; Protocol PRN Reason: per Hypoglycemia Standing Ord. Hydroxyzine HCl (Hydroxyzine Hcl 25 Mg Tablet) 25 mg PO Q6H PRN PRN Reason: mild anxiety Last Admin: 08/29/25 06:07 Dose: 25 mg Ibuprofen (Ibuprofen 600 Mg Tablet) 600 mg PO Q8H PRN PRN Reason: severe back pain Last Admin: 08/29/25 09:12 Dose: 600 mg Lidocaine (Lidocaine 4 % Patch Adh..Patch) 2 patch TRANSDERMA DAILY [facility]; Protocol Last Admin: 08/29/25 09:14 Dose: 2 patch Loratadine (Loratadine 10 Mg Tablet) 10 mg PO DAILY [facility] Last Admin: 08/29/25 09:13 Dose: 10 mg Magnesium Hydroxide (Milk Of Magnesia 30 Ml Oral.Susp) 30 ml PO DAILY PRN PRN Reason: Constipation Nicotine (Nicotine 21 Mg Patch.Td24) 21 mg TRANSDERMA DAILY [facility] Last Admin: 08/29/25 09:13 Dose: 21 mg Nicotine Polacrilex (Nicotine Polacrilex 2 Mg Gum) 4 mg BUCCAL Q2H PRN PRN Reason: Nicotine Cravings Last Admin: 08/28/25 10:00 Dose: 4 mg Sodium Chloride (Sodium Chloride 0.65 % Nasal 44 Ml Sprbtl) 1 spray NOSTRIL-B Q4H PRN PRN Reason: Congestion Last Admin: 08/22/25 17:43 Dose: 1 spray Trazodone HCl (Trazodone Hcl 50 Mg Tablet) 50 mg PO BEDTIME MRX1 PRN PRN Reason: Insomnia Trazodone HCl (Trazodone Hcl 25 Mg Halftab) 25 mg PO BEDTIME [facility] Last Admin: 08/28/25 20:31 Dose: 25 mg Ziprasidone (Ziprasidone 80 Mg Capsule) 80 mg PO BID@0900,1700 [facility] Last Admin: 08/29/25 09:13 Dose: 80 mg Allergies Allergies Allergy/AdvReac Type Severity Reaction Status Date / Time azithromycin Allergy Unknown Unknown Verified 08/20/25 17:41 latex Allergy Unknown Unknown Verified 08/20/25 17:41 Penicillins (PCN) Allergy Unknown Unknown Verified 08/20/25 17:41 Sulfa (Sulfonamide Allergy Unknown Unknown Verified 08/20/25 17:41 Antibiotics) Assessment & Plan Assessment & Plan (1) Bipolar disorder, curr episode depressed, severe, w/psychotic features: Status: Acute Code(s): F31.5 - Bipolar disorder, current episode depressed, severe, with psychotic features (2) History of stroke: Status: Acute Code(s): Z86.73 - Personal history of transient ischemic attack (TIA), and cerebral infarction without residual deficits (3) Hypokalemia: Status: Acute Code(s): E87.6 - Hypokalemia (4) B12 deficiency: Status: Acute Code(s): E53.8 - Deficiency of other specified B group vitamins Plan HPI: Patient is a 59 year old female who arrived to [facility] via family transportation for psychiatric evaluation. Precipitating Factors: Per report, pt wants an evaluation because she wants to be back on medications. Pt reported to carry bipolar diagnosis, has stopped taking meds for psychiatric and medical conditions for about 2 years. Formulation/clinical reasoning: disorganized, paranoid, impaired judgment and insight, not even recognized psychiatric symptoms, she is depressed, not taking care of self, not on meds for a couple years, making unsafe choices, not shower or eating normally, decompensated over time, not on meds either for psychiatric or medical conditions which put her self at risk, no current OP providers. Hx of Bipolar, DM II, HTN, CVA which she not even fully remember. Given the above information, patient would benefit to be in restrictive environment for own safety, medication management and refer patient to OP providers for aftercare. Hospital course: 08/21/25: Restart on Geodon 20mg BID, given with food. Will titrate up. Report was taking 80mg in the past. Motrin and Lidocaine patch for back pain Vitamin B12 1,000mg daily 08/22/25: Patient slept for 6 hours, was meds compliant without side effects. Tolerate well with Geodon. Denies mental health symptoms, poor insight and judgment. Patient reports she was given chewable pink color medication- adderall in the ED but not sure the name of medications but she thinks she was given adderall. Patient reports that she was given Adderall in 2016. It was reported to SW on Sunday from her son that it was suspected that patient had hx of overused her adderall. Patient is quiet but appear having racing thoughts. Report back and R hip pain. Reviewed medication plan, patient agrees to take low dose of trazodone for insomnia. Given Ensure BID for low weight, BMI. Patient appears to be disorganized. 08/23/25: Patient slept better, has been eating good. Blood sugar is within normal limits was slightly elevated. Point of care was DC'd. Patient asked about her insurance, wants Geodon to be increased. Perseverative about Geodon 80 mg which she was on in the past. Reports running nose/allergy symptoms. Continued to denies signs symptoms, poor insight and judgment, quiet, visible, compliant with medications. She is disorganized but slightly improved. Increase Geodon up to 60mg total daily in divided dose. Give with food. Claritin 10mg daily for allergy. 08/24 Patient reports she is Sleeping through the night. She remains a limited historian, not remembering much. When asked about manic episodes she says she will have 2 days of not sleeping and then refers to her struggles in high school where she was late to school many days because of oversleeping... She thinks she may have gone as much as 5 days without sleeping at different times in her life. When asked about other manic symptoms, patient starts to inappropriately laugh in a hilarious way saying that she does excess food shopping, nothing perishable... It is difficult to get specifics and patient continues to laugh, somewhat uncontrollably at the questions. Starch Crab discussed medication and patient patient Says Geodon ?Makes me feel better? and on inquiry agrees that it helps her Think more clearly; she agrees to titrated to 80 mg b.i.d. Denies hx of AVH Starch Crab reviewed medication list sent in documentation from [place] [facility], however patient is unaware of them: Primodine 50mg qhs; Denies any hx of seizure; had a stroke 5 years, hard to right (rt side); Buspar 10mg TID Wellbutren ER 100mg Lyrica 75 Bid Geodon 80 mg b.i.d. From chart, and collateral patient's son says she does not eat in a healthy way, consumes excess amount of sugar and only drinks sugared drinks Family reports patient has not been attending to any ADLs though patient says otherwise Starch Crab asked about why she was putting salt around the toilet and she says it is just to clean the area Denies any history of alcoholism though collateral strongly says otherwise Family concerned that perhaps patient's account information has been stolen the money was being consistently withdrawn Hx of Hypokelemina: WNL in the ED.Will check lytes on 08/22/25. B12 deficiency? Homocystine labs pending Methylmalonic acid labs pending Impression: Patient seems to have cognitive impairment, not sure if it is due psychosis, history of stroke, burgeoning dementia or history of chronic alcoholism (or combination); B12 deficiency with labs pending. Patient is in good behavioral and impulse control. Though with limited insight, she is amenable to medication regimen. Patient's sons are trying to help with aftercare 08/25 Patient reports she is good and denies psychiatric symptoms including AVH or paranoid ideations; however remains guarded and appears to be internally preoccupied and laughing inappropriately. Patient talking in whispers. Asks for Geodon to be further increased to 80 mg b.i.d. and wants to discuss discharge, agreeing that this still needs to be further planned out -will continue to titrate Geodon -will hold off other medications for now since she has been off meds a couple years and not sure what she needs 08/26 remains odd, internally preoccupied and with some speech latency; however discussing medications appropriately and agrees to increasing Geodon; will consider whether not to restart Wellbutrin 08/27: Patient found standing in her room. She notes that she has been sleeping and eating well. She notes chronic, persistent lower back and right hip pain. Calm and cooperative, guarded. She denies anxiety, depression, SI/HI/AVH. Continue current treatment regimen. EKG today with NSR/QTc. 08/29 no change in presentation, patient out in the milieu, sitting by herself; smiling inappropriately at times and seems to be internally preoccupied. Feels that Geodon is working though it is difficult for greeting card writer to tell. Patient focused on discharge soon Plan: CV Q 15 minute checks Increase to Geodon 80 mg b.i.d.(patient's past home dose) Will hold off with other medications as patient has been off all medications for 2 years (BuSpar, Wellbutrin, Lyrica; reported history of primidone but not sure why) Continue to get collateral Refer to OP psychiatrist/ therapist Patient educated on: diagnosis and medication risk/benefits Informed Consent: understands, does not understand and further education needed Reason for continued inpatient stay Substantial Risk for: stable for discharge, rapid decompensation and med/psych decompensation Time Spent With Patient Time: Total time managing care of this patient today ____ minutes.
[2025-08-29 20:00] VITALS: BP 114/56; PULSE 75; RESP 16; TEMP 36.5; O2SAT 95
[2025-08-29] MEDS: traZODone HCL 25 MG HALFTAB PO (20:56)
--- NOTE | 2025-08-30 | ECG_ITS ---
Test Reason : qtc Blood Pressure : */* mmHG Vent. Rate : 77 BPM Atrial Rate : 77 BPM P-R Int : 168 ms QRS Dur : 78 ms QT Int : 378 ms P-R-T Axes : 62 61 57 degrees QTcB Int : 427 ms Normal sinus rhythm Normal ECG When compared with ECG of 27-Aug-2025 10:00, No significant change was found Referred By: Mega Starkey Electronically Signed By: Alejandro Christopher
[2025-08-30 08:00] VITALS: BP 120/60; PULSE 82; RESP 18; TEMP 36.9; O2SAT 98
[2025-08-30] MEDS: Nicotine 21 MG PATCH.TD24 TRANSDERMA (08:14)
[2025-08-30] MEDS: Lidocaine 4 % Patch ADH..PATCH 2 PATCH TRANSDERMA (08:15)
--- NOTE | 2025-08-30 10:29 | P.PNPSI_ITS ---
Subjective Subjective Date of Service: 08/30/25 Reason For Visit: F31.9 Interim History: Met with patient; discussed with team Ordered EKG to monitor QTC and WNL Patient a little brighter and more talkative today. Mostly wanted to discuss discharge plans. She had questions about where she will go; questions about using herself on an e-mail. Discussed medications and patient wanted to get back on Wellbutrin saying that she thinks it was helpful. Kaiawhina Kohanga Reo agrees start wellbutrin xl 150 Mental Status Exam Mental Status Exam Narrative: Pt is alert and oriented; behavior is a little more talkative; not really guarded and cooperative on approach; still some d disorganized laughing or smiling inappropriately, but less so; patient is not in distress; dressed in casual attire with pink dyed hair, unkempt; mood is described as good and affect brighter, more calm; eye contact appropriate; Speech is normal volume, rate and prosody; no psychomotor agitation/retardation present; thought process is goal directed and more organized; Thought content seems to be on discharge plans; no expressed paranoid ideations; still appears internally preoccupied but less so; denies any SI/HI. Denies AVH with some internal preoccupation Patients insight and judgment impaired though improving and maybe getting close to baseline Diagnostics Vital Signs (24Hr): Vital Signs - 24 hr 08/29/25 20:00 08/30/25 08:00 Temperature 97.7 F 98.4 F Pulse Rate 75 82 Respiratory Rate 16 18 Blood Pressure 114/56 L 120/60 Pulse Oximetry 95 98 Oxygen Delivery Method Room Air Room Air BMI result Body Mass Index 21.2 Labs 08/22/25 07:38 08/22/25 07:38 Medications Medications Current Medications Acetaminophen (Acetaminophen 325 Mg Tablet) 650 mg PO Q6H PRN PRN Reason: Headache/Pain, Scale 1-10 Last Admin: 08/30/25 08:15 Dose: 650 mg Al Hydroxide/Mg Hydroxide (Magnesium Hydrox/Alum Hydrox 30 Ml Oral.Susp) 30 ml PO Q6H PRN PRN Reason: Heartburn/Nausea Benzocaine (Throat Lozenge, Medicated Lozenge) 1 lozenge MUCOUS MEM Q2H PRN PRN Reason: Sore Throat Last Admin: 08/23/25 08:30 Dose: 1 lozenge Cyanocobalamin (Cyanocobalamin (Vitamin B-12) 1,000 Mcg Tablet) 1,000 mcg PO DAILY [facility] Last Admin: 08/30/25 08:15 Dose: 1,000 mcg Dextrose (Dextrose 50 % 25 Gm/50 Ml Syringe) 25 gm IVPUSH Q15M PRN; Protocol PRN Reason: per Hypoglycemia Standing Ord. Glucose (Glucose Gel 15 Gm Gel..Gram.) 15 gm PO Q15M PRN; Protocol PRN Reason: per Hypoglycemia Standing Ord. Hydroxyzine HCl (Hydroxyzine Hcl 25 Mg Tablet) 25 mg PO Q6H PRN PRN Reason: mild anxiety Last Admin: 08/29/25 16:48 Dose: 25 mg Ibuprofen (Ibuprofen 600 Mg Tablet) 600 mg PO Q8H PRN PRN Reason: severe back pain Last Admin: 08/30/25 08:14 Dose: 600 mg Lidocaine (Lidocaine 4 % Patch Adh..Patch) 2 patch TRANSDERMA DAILY [facility]; Protocol Last Admin: 08/30/25 08:15 Dose: 2 patch Loratadine (Loratadine 10 Mg Tablet) 10 mg PO DAILY [facility] Last Admin: 08/30/25 08:15 Dose: 10 mg Magnesium Hydroxide (Milk Of Magnesia 30 Ml Oral.Susp) 30 ml PO DAILY PRN PRN Reason: Constipation Nicotine (Nicotine 21 Mg Patch.Td24) 21 mg TRANSDERMA DAILY [facility] Last Admin: 08/30/25 08:14 Dose: 21 mg Nicotine Polacrilex (Nicotine Polacrilex 2 Mg Gum) 4 mg BUCCAL Q2H PRN PRN Reason: Nicotine Cravings Last Admin: 08/29/25 13:15 Dose: 4 mg Sodium Chloride (Sodium Chloride 0.65 % Nasal 44 Ml Sprbtl) 1 spray NOSTRIL-B Q4H PRN PRN Reason: Congestion Last Admin: 08/22/25 17:43 Dose: 1 spray Trazodone HCl (Trazodone Hcl 50 Mg Tablet) 50 mg PO BEDTIME MRX1 PRN PRN Reason: Insomnia Last Admin: 08/30/25 01:47 Dose: 50 mg Trazodone HCl (Trazodone Hcl 25 Mg Halftab) 25 mg PO BEDTIME [facility] Last Admin: 08/29/25 20:56 Dose: 25 mg Ziprasidone (Ziprasidone 80 Mg Capsule) 80 mg PO BID@0900,1700 [facility] Last Admin: 08/30/25 08:15 Dose: 80 mg Allergies Allergies Allergy/AdvReac Type Severity Reaction Status Date / Time azithromycin Allergy Unknown Unknown Verified 08/20/25 17:41 latex Allergy Unknown Unknown Verified 08/20/25 17:41 Penicillins (PCN) Allergy Unknown Unknown Verified 08/20/25 17:41 Sulfa (Sulfonamide Allergy Unknown Unknown Verified 08/20/25 17:41 Antibiotics) Assessment & Plan Assessment & Plan (1) Bipolar disorder, curr episode depressed, severe, w/psychotic features: Status: Acute Code(s): F31.5 - Bipolar disorder, current episode depressed, severe, with psychotic features (2) History of stroke: Status: Acute Code(s): Z86.73 - Personal history of transient ischemic attack (TIA), and cerebral infarction without residual deficits (3) Hypokalemia: Status: Acute Code(s): E87.6 - Hypokalemia (4) B12 deficiency: Status: Acute Code(s): E53.8 - Deficiency of other specified B group vitamins Plan HPI: Patient is a 59 year old female who arrived to [facility] via family transportation for psychiatric evaluation. Precipitating Factors: Per report, pt wants an evaluation because she wants to be back on medications. Pt reported to carry bipolar diagnosis, has stopped taking meds for psychiatric and medical conditions for about 2 years. Formulation/clinical reasoning: disorganized, paranoid, impaired judgment and insight, not even recognized psychiatric symptoms, she is depressed, not taking care of self, not on meds for a couple years, making unsafe choices, not shower or eating normally, decompensated over time, not on meds either for psychiatric or medical conditions which put her self at risk, no current OP providers. Hx of Bipolar, DM II, HTN, CVA which she not even fully remember. Given the above information, patient would benefit to be in restrictive environment for own safety, medication management and refer patient to OP providers for aftercare. Hospital course: 08/21/25: Restart on Geodon 20mg BID, given with food. Will titrate up. Report was taking 80mg in the past. Motrin and Lidocaine patch for back pain Vitamin B12 1,000mg daily 08/22/25: Patient slept for 6 hours, was meds compliant without side effects. Tolerate well with Geodon. Denies mental health symptoms, poor insight and judgment. Patient reports she was given chewable pink color medication- adderall in the ED but not sure the name of medications but she thinks she was given adderall. Patient reports that she was given Adderall in 2016. It was reported to SW on Sunday from her son that it was suspected that patient had hx of overused her adderall. Patient is quiet but appear having racing thoughts. Report back and R hip pain. Reviewed medication plan, patient agrees to take low dose of trazodone for insomnia. Given Ensure BID for low weight, BMI. Patient appears to be disorganized. 08/23/25: Patient slept better, has been eating good. Blood sugar is within normal limits was slightly elevated. Point of care was DC'd. Patient asked about her insurance, wants Geodon to be increased. Perseverative about Geodon 80 mg which she was on in the past. Reports running nose/allergy symptoms. Continued to denies signs symptoms, poor insight and judgment, quiet, visible, compliant with medications. She is disorganized but slightly improved. Increase Geodon up to 60mg total daily in divided dose. Give with food. Claritin 10mg daily for allergy. 08/24 Patient reports she is Sleeping through the night. She remains a limited historian, not remembering much. When asked about manic episodes she says she will have 2 days of not sleeping and then refers to her struggles in high school where she was late to school many days because of oversleeping... She thinks she may have gone as much as 5 days without sleeping at different times in her life. When asked about other manic symptoms, patient starts to inappropriately laugh in a hilarious way saying that she does excess food shopping, nothing perishable... It is difficult to get specifics and patient continues to laugh, somewhat uncontrollably at the questions. Kaiawhina Kohanga Reo discussed medication and patient patient Says Geodon ?Makes me feel better? and on inquiry agrees that it helps her Think more clearly; she agrees to titrated to 80 mg b.i.d. Denies hx of AVH Kaiawhina Kohanga Reo reviewed medication list sent in documentation from [place] [facility], however patient is unaware of them: Primodine 50mg qhs; Denies any hx of seizure; had a stroke 5 years, hard to right (rt side); Buspar 10mg TID Wellbutren ER 100mg Lyrica 75 Bid Geodon 80 mg b.i.d. From chart, and collateral patient's son says she does not eat in a healthy way, consumes excess amount of sugar and only drinks sugared drinks Family reports patient has not been attending to any ADLs though patient says otherwise Kaiawhina Kohanga Reo asked about why she was putting salt around the toilet and she says it is just to clean the area Denies any history of alcoholism though collateral strongly says otherwise Family concerned that perhaps patient's account information has been stolen the money was being consistently withdrawn Hx of Hypokelemina: WNL in the ED.Will check lytes on 08/22/25. B12 deficiency? Homocystine labs pending Methylmalonic acid labs pending Impression: Patient seems to have cognitive impairment, not sure if it is due psychosis, history of stroke, burgeoning dementia or history of chronic alcoholism (or combination); B12 deficiency with labs pending. Patient is in good behavioral and impulse control. Though with limited insight, she is amenable to medication regimen. Patient's sons are trying to help with aftercare 08/25 Patient reports she is good and denies psychiatric symptoms including AVH or paranoid ideations; however remains guarded and appears to be internally preoccupied and laughing inappropriately. Patient talking in whispers. Asks for Geodon to be further increased to 80 mg b.i.d. and wants to discuss discharge, agreeing that this still needs to be further planned out -will continue to titrate Geodon -will hold off other medications for now since she has been off meds a couple years and not sure what she needs 08/26 remains odd, internally preoccupied and with some speech latency; however discussing medications appropriately and agrees to increasing Geodon; will consider whether not to restart Wellbutrin 08/27: Patient found standing in her room. She notes that she has been sleeping and eating well. She notes chronic, persistent lower back and right hip pain. Calm and cooperative, guarded. She denies anxiety, depression, SI/HI/AVH. Continue current treatment regimen. EKG today with NSR/QTc. 08/29 no change in presentation, patient out in the milieu, sitting by herself; smiling inappropriately at times and seems to be internally preoccupied. 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 Patient focused on discharge soon 08/30 Ordered EKG to monitor QTC and WNL Patient a little brighter and more talkative today. Mostly wanted to discuss discharge plans. She had questions about where she will go; questions about using herself on an e-mail. Discussed medications and patient wanted to get back on Wellbutrin saying that she thinks it was helpful. Kaiawhina Kohanga Reo agrees -will start wellbutrin xl 150 and consider titration; patient reports mood is overall good however Wellbutrin may also be able to help with executive functioning Plan: CV Q 15 minute checks Start Wellbutrin XL 150 mg; may titrate further; patient used to be on 300 mg Continue Geodon 80 mg b.i.d.(patient's past home dose) Will hold off with other medications as patient has been off all medications for 2 years (BuSpar, Wellbutrin, Lyrica; reported history of primidone but not sure why) Continue to get collateral Refer to OP psychiatrist/ therapist Patient educated on: diagnosis, medication risk/benefits and therapeutic strategies Informed Consent: understands and further education needed Reason for continued inpatient stay Substantial Risk for: stable for discharge and med/psych decompensation Time Spent With Patient Time: Total time managing care of this patient today ____ minutes.
[2025-08-30] MEDS: buPROPion HCl XL 150 MG TAB.ER.24H PO (13:00)
[2025-08-30 20:00] VITALS: BP 110/55; PULSE 89; RESP 16; TEMP 36.2; O2SAT 97
[2025-08-30] MEDS: traZODone HCL 25 MG HALFTAB PO (20:18)
[2025-08-31 08:00] VITALS: BP 100/55; PULSE 70; RESP 18; TEMP 35.9; O2SAT 97
[2025-08-31] MEDS: Nicotine 21 MG PATCH.TD24 TRANSDERMA (08:48)
[2025-08-31] MEDS: buPROPion HCl XL 150 MG TAB.ER.24H PO (08:49)
[2025-08-31] MEDS: Lidocaine 4 % Patch ADH..PATCH 2 PATCH TRANSDERMA (08:49)
--- NOTE | 2025-08-31 10:05 | P.PNPSI_ITS ---
Subjective Subjective Date of Service: 08/31/25 Reason For Visit: F31.9 Interim History: met with patient; discussed with team remains doing better, more clear. Likes Wellbutrin and ask for it to be increased saying she wants to be back on home dose of medication before she discharges. Later pt showed raised, bumpy, itchy rash on wrist; decided to not not increase Wellbutrin in case the cause Mental Status Exam Mental Status Exam Narrative: Pt is alert and oriented; behavior is a little more talkative; not really guarded and cooperative on approach; still some d disorganized laughing or smiling inappropriately, but less so; patient is not in distress; dressed in casual attire with pink dyed hair, unkempt; mood is described as good and affect brighter, more calm; eye contact appropriate; Speech is normal volume, rate and prosody; no psychomotor agitation/retardation present; thought process is goal directed and more organized; Thought content seems to be on discharge plans; no expressed paranoid ideations; still appears internally preoccupied but less so; denies any SI/HI. Denies AVH with some internal preoccupation Patients insight and judgment impaired though improving and maybe getting close to baseline Diagnostics Vital Signs (24Hr): Vital Signs - 24 hr 08/30/25 20:00 08/31/25 08:00 Temperature 97.1 F 96.7 F L Pulse Rate 89 70 Respiratory Rate 16 18 Blood Pressure 110/55 L 100/55 L Pulse Oximetry 97 97 Oxygen Delivery Method Room Air Room Air BMI result Body Mass Index 21.2 Labs 08/22/25 07:38 08/22/25 07:38 Medications Medications Current Medications Acetaminophen (Acetaminophen 325 Mg Tablet) 650 mg PO Q6H PRN PRN Reason: Headache/Pain, Scale 1-10 Last Admin: 08/31/25 08:55 Dose: 650 mg Al Hydroxide/Mg Hydroxide (Magnesium Hydrox/Alum Hydrox 30 Ml Oral.Susp) 30 ml PO Q6H PRN PRN Reason: Heartburn/Nausea Benzocaine (Throat Lozenge, Medicated Lozenge) 1 lozenge MUCOUS MEM Q2H PRN PRN Reason: Sore Throat Last Admin: 08/23/25 08:30 Dose: 1 lozenge Bupropion HCl (Bupropion Hcl Xl 150 Mg Tab.Er.24h) 150 mg PO DAILY CAL Last Admin: 08/31/25 08:49 Dose: 150 mg Cyanocobalamin (Cyanocobalamin (Vitamin B-12) 1,000 Mcg Tablet) 1,000 mcg PO DAILY [facility] Last Admin: 08/31/25 08:50 Dose: 1,000 mcg Dextrose (Dextrose 50 % 25 Gm/50 Ml Syringe) 25 gm IVPUSH Q15M PRN; Protocol PRN Reason: per Hypoglycemia Standing Ord. Glucose (Glucose Gel 15 Gm Gel..Gram.) 15 gm PO Q15M PRN; Protocol PRN Reason: per Hypoglycemia Standing Ord. Hydroxyzine HCl (Hydroxyzine Hcl 25 Mg Tablet) 25 mg PO Q6H PRN PRN Reason: mild anxiety Last Admin: 08/31/25 05:06 Dose: 25 mg Ibuprofen (Ibuprofen 600 Mg Tablet) 600 mg PO Q8H PRN PRN Reason: severe back pain Last Admin: 08/31/25 08:55 Dose: 600 mg Lidocaine (Lidocaine 4 % Patch Adh..Patch) 2 patch TRANSDERMA DAILY [facility]; Protocol Last Admin: 08/31/25 08:49 Dose: 2 patch Loratadine (Loratadine 10 Mg Tablet) 10 mg PO DAILY [facility] Last Admin: 08/31/25 08:49 Dose: 10 mg Magnesium Hydroxide (Milk Of Magnesia 30 Ml Oral.Susp) 30 ml PO DAILY PRN PRN Reason: Constipation Nicotine (Nicotine 21 Mg Patch.Td24) 21 mg TRANSDERMA DAILY [facility] Last Admin: 08/31/25 08:48 Dose: 21 mg Nicotine Polacrilex (Nicotine Polacrilex 2 Mg Gum) 4 mg BUCCAL Q2H PRN PRN Reason: Nicotine Cravings Last Admin: 08/29/25 13:15 Dose: 4 mg Sodium Chloride (Sodium Chloride 0.65 % Nasal 44 Ml Sprbtl) 1 spray NOSTRIL-B Q4H PRN PRN Reason: Congestion Last Admin: 08/22/25 17:43 Dose: 1 spray Trazodone HCl (Trazodone Hcl 50 Mg Tablet) 50 mg PO BEDTIME MRX1 PRN PRN Reason: Insomnia Last Admin: 08/31/25 00:43 Dose: 50 mg Trazodone HCl (Trazodone Hcl 25 Mg Halftab) 25 mg PO BEDTIME [facility] Last Admin: 08/30/25 20:18 Dose: 25 mg Ziprasidone (Ziprasidone 80 Mg Capsule) 80 mg PO BID@0900,1700 [facility] Last Admin: 08/31/25 08:49 Dose: 80 mg Allergies Allergies Allergy/AdvReac Type Severity Reaction Status Date / Time azithromycin Allergy Unknown Unknown Verified 08/20/25 17:41 latex Allergy Unknown Unknown Verified 08/20/25 17:41 Penicillins (PCN) Allergy Unknown Unknown Verified 08/20/25 17:41 Sulfa (Sulfonamide Allergy Unknown Unknown Verified 08/20/25 17:41 Antibiotics) Assessment & Plan Assessment & Plan (1) Bipolar disorder, curr episode depressed, severe, w/psychotic features: Status: Acute Code(s): F31.5 - Bipolar disorder, current episode depressed, severe, with psychotic features (2) History of stroke: Status: Acute Code(s): Z86.73 - Personal history of transient ischemic attack (TIA), and cerebral infarction without residual deficits (3) Hypokalemia: Status: Acute Code(s): E87.6 - Hypokalemia (4) B12 deficiency: Status: Acute Code(s): E53.8 - Deficiency of other specified B group vitamins Plan HPI: Patient is a 59 year old female who arrived to [facility] via family transportation for psychiatric evaluation. Precipitating Factors: Per report, pt wants an evaluation because she wants to be back on medications. Pt reported to carry bipolar diagnosis, has stopped taking meds for psychiatric and medical conditions for about 2 years. Formulation/clinical reasoning: disorganized, paranoid, impaired judgment and insight, not even recognized psychiatric symptoms, she is depressed, not taking care of self, not on meds for a couple years, making unsafe choices, not shower or eating normally, decompensated over time, not on meds either for psychiatric or medical conditions which put her self at risk, no current OP providers. Hx of Bipolar, DM II, HTN, CVA which she not even fully remember. Given the above information, patient would benefit to be in restrictive environment for own safety, medication management and refer patient to OP providers for aftercare. Hospital course: 08/21/25: Restart on Geodon 20mg BID, given with food. Will titrate up. Report was taking 80mg in the past. Motrin and Lidocaine patch for back pain Vitamin B12 1,000mg daily 08/22/25: Patient slept for 6 hours, was meds compliant without side effects. Tolerate well with Geodon. Denies mental health symptoms, poor insight and judgment. Patient reports she was given chewable pink color medication- adderall in the ED but not sure the name of medications but she thinks she was given adderall. Patient reports that she was given Adderall in 2015. It was reported to SW on Sunday from her son that it was suspected that patient had hx of overused her adderall. Patient is quiet but appear having racing thoughts. Report back and R hip pain. Reviewed medication plan, patient agrees to take low dose of trazodone for insomnia. Given Ensure BID for low weight, BMI. Patient appears to be disorganized. 08/23/25: Patient slept better, has been eating good. Blood sugar is within normal limits was slightly elevated. Point of care was DC'd. Patient asked about her insurance, wants Geodon to be increased. Perseverative about Geodon 80 mg which she was on in the past. Reports running nose/allergy symptoms. Continued to denies signs symptoms, poor insight and judgment, quiet, visible, compliant with medications. She is disorganized but slightly improved. Increase Geodon up to 60mg total daily in divided dose. Give with food. Claritin 10mg daily for allergy. 08/24 Patient reports she is Sleeping through the night. She remains a limited historian, not remembering much. When asked about manic episodes she says she will have 2 days of not sleeping and then refers to her struggles in high school where she was late to school many days because of oversleeping... She thinks she may have gone as much as 5 days without sleeping at different times in her life. When asked about other manic symptoms, patient starts to inappropriately laugh in a hilarious way saying that she does excess food shopping, nothing perishable... It is difficult to get specifics and patient continues to laugh, somewhat uncontrollably at the questions. [employer] discussed medication and patient patient Says Geodon ?Makes me feel better? and on inquiry agrees that it helps her Think more clearly; she agrees to titrated to 80 mg b.i.d. Denies hx of AVH [employer] reviewed medication list sent in documentation from [place] [facility], however patient is unaware of them: Primodine 50mg qhs; Denies any hx of seizure; had a stroke 5 years, hard to right (rt side); Buspar 10mg TID Wellbutren ER 100mg Lyrica 75 Bid Geodon 80 mg b.i.d. From chart, and collateral patient's son says she does not eat in a healthy way, consumes excess amount of sugar and only drinks sugared drinks Family reports patient has not been attending to any ADLs though patient says otherwise [employer] asked about why she was putting salt around the toilet and she says it is just to clean the area Denies any history of alcoholism though collateral strongly says otherwise Family concerned that perhaps patient's account information has been stolen the money was being consistently withdrawn Hx of Hypokelemina: WNL in the ED.Will check lytes on 08/22/25. B12 deficiency? Homocystine labs pending Methylmalonic acid labs pending Impression: Patient seems to have cognitive impairment, not sure if it is due psychosis, history of stroke, burgeoning dementia or history of chronic alcoholism (or combination); B12 deficiency with labs pending. Patient is in good behavioral and impulse control. Though with limited insight, she is amenable to medication regimen. Patient's sons are trying to help with aftercare 08/25 Patient reports she is good and denies psychiatric symptoms including AVH or paranoid ideations; however remains guarded and appears to be internally preoccupied and laughing inappropriately. Patient talking in whispers. Asks for Geodon to be further increased to 80 mg b.i.d. and wants to discuss discharge, agreeing that this still needs to be further planned out -will continue to titrate Geodon -will hold off other medications for now since she has been off meds a couple years and not sure what she needs 08/26 remains odd, internally preoccupied and with some speech latency; however discussing medications appropriately and agrees to increasing Geodon; will consider whether not to restart Wellbutrin 08/27: Patient found standing in her room. She notes that she has been sleeping and eating well. She notes chronic, persistent lower back and right hip pain. Calm and cooperative, guarded. She denies anxiety, depression, SI/HI/AVH. Continue current treatment regimen. EKG today with NSR/QTc. 08/29 no change in presentation, patient out in the milieu, sitting by herself; smiling inappropriately at times and seems to be internally preoccupied. Feels that Geodon is working though it is difficult for headline writer to tell. Patient focused on discharge soon 08/30 Ordered EKG to monitor QTC and WNL Patient a little brighter and more talkative today. Mostly wanted to discuss discharge plans. She had questions about where she will go; questions about using herself on an e-mail. Discussed medications and patient wanted to get back on Wellbutrin saying that she thinks it was helpful. [employer] agrees -will start wellbutrin xl 150 and consider titration; patient reports mood is overall good however Wellbutrin may also be able to help with executive functioning 08/31 remains doing better, more clear. Likes Wellbutrin and ask for it to be increased saying she wants to be back on home dose of medication before she discharges. Later pt showed raised, bumpy, itchy rash on wrist; decided to not not increase Wellbutrin in case the cause -pt planning to [facility] Plan: CV Q 15 minute checks Start Wellbutrin XL 150 mg; may titrate further; patient used to be on 300 mg Continue Geodon 80 mg b.i.d.(patient's past home dose) Will hold off with other medications as patient has been off all medications for 2 years (BuSpar, Wellbutrin, Lyrica; reported history of primidone but not sure why) Continue to get collateral Refer to OP psychiatrist/ therapist Patient educated on: diagnosis and medication risk/benefits Informed Consent: understands and further education needed Reason for continued inpatient stay Substantial Risk for: stable for discharge Time Spent With Patient Time: Total time managing care of this patient today ____ minutes.
[2025-08-31 20:02] VITALS: BP 130/62; PULSE 76; RESP 16; TEMP 36.6; O2SAT 97
[2025-08-31] MEDS: traZODone HCL 25 MG HALFTAB PO (21:28)
[2025-09-01 08:00] VITALS: BP 119/54; PULSE 71; RESP 15; TEMP 36.6; O2SAT 94
[2025-09-01] MEDS: Nicotine 21 MG PATCH.TD24 TRANSDERMA (08:26)
[2025-09-01] MEDS: Lidocaine 4 % Patch ADH..PATCH 2 PATCH TRANSDERMA (08:28)
[2025-09-01] MEDS: buPROPion HCl XL 150 MG TAB.ER.24H PO (08:29)
--- NOTE | 2025-09-01 11:08 | P.DS_ITS ---
DS: Providers Provider Date of Service: 09/01/25 Date of admission: 08/20/25 18:55 Date of discharge: 09/01/25 Primary care physician: Unknown Physician Attending physician on admission: Mega Starkey Consults: 08/20/25 21:47 Consult to Hospitalist Routine Comment: Consulting Provider: [facility] Hospitalists Reason For Exam: New outside admit Attending physician on discharge: Mega Starkey DS: Diagnosis Discharge Diagnosis (1) Bipolar disorder, curr episode depressed, severe, w/psychotic features: Status: Acute (2) History of stroke: Status: Acute (3) Hypokalemia: Status: Acute (4) B12 deficiency: Status: Acute DS: Medications Discharge Medications Home Medications: Previous Rx's ?Medication ?Instructions ?Recorded bupropion HCl 150 mg 24 hr tablet, 150 mg PO DAILY 30 days #30 tabs 09/01/25 extended release cyanocobalamin (vitamin B-12) 1,000 mcg PO DAILY 30 da ys #30 tabs 09/01/25 1,000 mcg tablet (Vitamin B-12) hydroxyzine HCl 25 mg tablet 25 mg PO Q6H PRN mild anx iety 30 09/01/25 days #60 tabs lidocaine 4 % topical patch 2 patch transdermal DAILY PRN 09/01/25 (Lidocaine Pain Relief) lower back pain 30 days #30 ea loratadine 10 mg tablet 10 mg PO DAILY PRN allergies 30 09/01/25 days #30 tabs nicotine (polacrilex) 4 mg gum 4 mg buccal Q2H PRN rickey otine 09/01/25 cravings 30 days #100 ea trazodone 50 mg tablet 50 mg PO BEDTIME MRX1 PRN In somnia 09/01/25 30 days #30 tabs ziprasidone HCl 80 mg capsule 80 mg PO BID@0900,1700 3 0 days #60 09/01/25 caps Data Data Completed and Pending Completed studies during hospitalization [Text1]: 08/22/25 07:38 Methylmalonic Acid 947 H Homocysteine 19.1 H DS: Summary Hospital Course Hospital Course: HPI: Patient is a 59 year old female who arrived to [facility] via family transportation for psychiatric evaluation. Precipitating Factors: Per report, pt wants an evaluation because she wants to be back on medications. Pt reported to carry bipolar diagnosis, has stopped taking meds for psychiatric and medical conditions for about 2 years. Formulation/clinical reasoning: disorganized, paranoid, impaired judgment and insight, not even recognized psychiatric symptoms, she is depressed, not taking care of self, not on meds for a couple years, making unsafe choices, not shower or eating normally, decompensated over time, not on meds either for psychiatric or medical conditions which put her self at risk, no current OP providers. Hx of Bipolar, DM II, HTN, CVA which she not even fully remember. Given the above information, patient would benefit to be in restrictive environment for own safety, medication management and refer patient to OP providers for aftercare. Hospital course: 08/21/25: Restart on Geodon 20mg BID, given with food. Will titrate up. Report was taking 80mg in the past. Motrin and Lidocaine patch for back pain Vitamin B12 1,000mg daily pt started on Geodon 08/22/25: Patient slept for 6 hours, was meds compliant without side effects. Tolerate well with Geodon. Denies mental health symptoms, poor insight and judgment. Patient reports she was given chewable pink color medication- adderall in the ED but not sure the name of medications but she thinks she was given adderall. Patient reports that she was given Adderall in 2015. It was reported to SW on Sunday from her son that it was suspected that patient had hx of overused her adderall. Patient is quiet but appear having racing thoughts. Report back and R hip pain. Reviewed medication plan, patient agrees to take low dose of trazodone for insomnia. Given Ensure BID for low weight, BMI. Patient appears to be disorganized. 08/23/25: Patient slept better, has been eating good. Blood sugar is within normal limits was slightly elevated. Point of care was DC'd. Patient asked about her insurance, wants Geodon to be increased. Perseverative about Geodon 80 mg which she was on in the past. Reports running nose/allergy symptoms. Continued to denies signs symptoms, poor insight and judgment, quiet, visible, compliant with medications. She is disorganized but slightly improved. Increase Geodon up to 60mg total daily in divided dose. Give with food. Claritin 10mg daily for allergy. 08/24 Patient reports she is Sleeping through the night. She remains a limited historian, not remembering much. When asked about manic episodes she says she will have 2 days of not sleeping and then refers to her struggles in high school where she was late to school many days because of oversleeping... She thinks she may have gone as much as 5 days without sleeping at different times in her life. When asked about other manic symptoms, patient starts to inappropriately laugh in a hilarious way saying that she does excess food shopping, nothing perishable... It is difficult to get specifics and patient continues to laugh, somewhat uncontrollably at the questions. Gas Engine Mechanic discussed medication and patient patient Says Geodon ?Makes me feel better? and on inquiry agrees that it helps her Think more clearly; she agrees to titrated to 80 mg b.i.d. Denies hx of AVH Gas Engine Mechanic reviewed medication list sent in documentation from [place] ED, however patient is unaware of them: Primodine 50mg qhs; Denies any hx of seizure; had a stroke 5 years, hard to right (rt side); Buspar 10mg TID Wellbutren ER 100mg Lyrica 75 Bid Geodon 80 mg b.i.d. From chart, and collateral patient's son says she does not eat in a healthy way, consumes excess amount of sugar and only drinks sugared drinks Family reports patient has not been attending to any ADLs though patient says otherwise Gas Engine Mechanic asked about why she was putting salt around the toilet and she says it is just to clean the area Denies any history of alcoholism though collateral strongly says otherwise Family concerned that perhaps patient's account information has been stolen the money was being consistently withdrawn Hx of Hypokelemina: WNL in the ED.Will check lytes on 08/22/25. B12 deficiency? Homocystine labs pending Methylmalonic acid labs pending Impression: Patient seems to have cognitive impairment, not sure if it is due psychosis, history of stroke, burgeoning dementia or history of chronic alcoholism (or combination); B12 deficiency with labs pending. Patient is in good behavioral and impulse control. Though with limited insight, she is amenable to medication regimen. Patient's sons are trying to help with aftercare 08/25 Patient reports she is good and denies psychiatric symptoms including AVH or paranoid ideations; however remains guarded and appears to be internally preoccupied and laughing inappropriately. Patient talking in whispers. Asks for Geodon to be further increased to 80 mg b.i.d. and wants to discuss discharge, agreeing that this still needs to be further planned out -will continue to titrate Geodon -will hold off other medications for now since she has been off meds a couple ye ars and not sure what she needs 08/26 remains odd, internally preoccupied and with some speech latency; however discussing medications appropriately and agrees to increasing Geodon; will consider whether not to restart Wellbutrin 08/27: Patient found standing in her room. She notes that she has been sleeping and eating well. She notes chronic, persistent lower back and right hip pain. Calm and cooperative, guarded. She denies anxiety, depression, SI/HI/AVH. Continue current treatment regimen. EKG today with NSR/QTc. 08/29 no change in presentation, patient out in the milieu, sitting by herself; smiling inappropriately at times and seems to be internally preoccupied. Feels that Geodon is working though it is difficult for investment underwriter to tell. Patient focused on discharge soon 08/30 Ordered EKG to monitor QTC and WNL Patient a little brighter and more talkative today. Mostly wanted to discuss discharge plans. She had questions about where she will go; questions about using herself on an e-mail. Discussed medications and patient wanted to get back on Wellbutrin saying that she thinks it was helpful. Gas Engine Mechanic agrees -will start wellbutrin xl 150 and consider titration; patient reports mood is overall good however Wellbutrin may also be able to help with executive functioning 08/31 remains doing better, more clear. Likes Wellbutrin and ask for it to be increased saying she wants to be back on home dose of medication before she discharges. Later pt showed raised, bumpy, itchy rash on wrist; decided to not not increase Wellbutrin in case the cause -pt planning to dc tues Plan: CV Q 15 minute checks Start Wellbutrin XL 150 mg; may titrate further; patient used to be on 300 mg Continue Geodon 80 mg b.i.d.(patient's past home dose) Will hold off with other medications as patient has been off all medications for 2 years (BuSpar, Wellbutrin, Lyrica; reported history of primidone but not sure why) Continue to get collateral Refer to OP psychiatrist/ therapist Patient educated on: diagnosis and medication risk/benefits Time Spent with Patient Time attestation: Total time managing care of this patient today ____ minutes. Discharge Plan Discharge Anticipated Discharge Date/Time: 09/01/25 11:55 Patient Disposition: Home, Self-Care Discharge Diagnosis: bipolar disorder (r/o schizoaffective do) Referrals: [facility] [Other] - 1 Week Referral Note: [facility] resources Patient should self present for support in accessing emergency long-term. Intake begins at 4:30 p.m. and ends at 6:00 p.m. daily. [facility] [Other] - 10/19/25 9:00 am Referral Note: Patient will have to self present to [facility] once insurance becomes active to have diagnostic evaluation completed to establish with outpatient psychiatric/therapy providers. Sunday, Sunday, Sunday, , Sunday, Sunday, Sunday from 8:00 AM to 8:00 PM for ALL age group(s) Sunday, Sunday from 9:00 AM to 5:00 PM for ALL age group(s) Physician,Unknown J [Primary Care Provider, Medical] - 1 Week Discharge Medications: New loratadine 10 mg Tablet 10 mg PO DAILY PRN (Reason: allergies) 30 Days Qty: 30 1RF nicotine (polacrilex) 4 mg gum 4 mg buccal Q2H PRN (Reason: nicotine cravings) 30 Days Qty: 100 0RF bupropion HCl 150 mg Tablet Extended Release 24 Hr 150 mg PO DAILY 30 Days Qty: 30 1RF hydroxyzine HCl 25 mg Tablet 25 mg PO Q6H PRN (Reason: mild anxiety) 30 Days Qty: 60 1RF trazodone 50 mg Tablet 50 mg PO BEDTIME MRX1 PRN (Reason: Insomnia) 30 Days Qty: 30 1RF ziprasidone HCl 80 mg Capsule 80 mg PO BID@0900,1700 30 Days Qty: 60 1RF lidocaine [Lidocaine Pain Relief] 4 % Adhesive Patch,Medicated 2 patch transdermal DAILY PRN (Reason: lower back pain) 30 Days Qty: 30 1RF Protocol: Apply to: Apply to: Lower back and right hip cyanocobalamin (vitamin B-12) [Vitamin B-12] 1,000 mcg Tablet 1,000 mcg PO DAILY 30 Days Qty: 30 1RF Discharge Orders: Discharge Order (Routine); Ordered 09/01/25 Ordered By: Mega Starkey Diet: Regular diet Activity on Discharge: As tolerated Stand Alone Forms: Patient Portal Discharge page Print Language: Puerto [place]ican Care Plan Goals: Maintain mood and safe behaviors Take medications as prescribed Continue to pursue sobriety Practice coping skills Continue with outpatient providers and reach out to them as needed Health Concerns: Mood stability and behaviors Vit B12 deficiency allergies chronic lower back pain Plan of Treatment: Follow up with your PCP, psychiatric provider and other outpatient providers regarding above concerns Take medications as prescribed Assessment: Risk assessment at time of discharge:? Patient was interviewed prior to discharge and found to be fully oriented and without any SI or HI. Patient has improved insight and judgment and wants to continue treatment. Patient is not in imminent risk of harm to self or others and has a safety plan that includes presenting to the closest ER or calling 911 if feeling unsafe.? Patient has been observed closely by nursing and unit staff throughout admission; patient has not engaged in any behaviors that suggest dangerousness to self or others and has demonstrated appropriate behaviors and impulse control
== END 2025-09-01 11:44 | disposition home or self-care (01) | DRG 885 ==
PROVIDERS: Clinical Nurse Specialist Psychiatric/Mental Health, Adult; Nurse Practitioner Family; Admitting Provider Psychiatry & Neurology Psychiatry; Visit Provider Psychiatry & Neurology Psychiatry
DX: F31.5 Bipolar disorder, current episode depressed, severe, with psychotic features (principal); E53.8 Deficiency of other specified B group vitamins; I10 Essential (primary) hypertension; E11.9 Type 2 diabetes mellitus without complications; M54.59 Other low back pain; G89.29 Other chronic pain; Z86.73 Personal history of transient ischemic attack (TIA), and cerebral infarction without residual deficits; Z79.899 Other long term (current) drug therapy
CPT/HCPCS: 36415; 80048; 80061; 82607; 82746; 82947; 83036; 83090; 83735; 83921; 84439; 84443; 85025; 93005

== ENCOUNTER 2025-08-20 18:55 | Outpatient (BNV) | payer SELFPAY | END 2025-08-27 10:00 | PROVIDERS: Admitting Provider Psychiatry & Neurology Psychiatry; Visit Provider Internal Medicine Cardiovascular Disease | DX: Z13.6 Encounter for screening for cardiovascular disorders (principal) | CPT/HCPCS: 93010 ==

== ENCOUNTER → 2025-08-20 18:55 | Outpatient (BNV) | payer SELFPAY | PROVIDERS: Admitting Provider Psychiatry & Neurology Psychiatry; Visit Provider Nurse Practitioner Psychiatric/Mental Health | DX: F31.5 Bipolar disorder, current episode depressed, severe, with psychotic features (principal); Z86.73 Personal history of transient ischemic attack (TIA), and cerebral infarction without residual deficits; E87.6 Hypokalemia | CPT/HCPCS: 90792; 99232 ==

== ENCOUNTER → 2025-08-20 18:55 | Outpatient (BNV) | payer SELFPAY | PROVIDERS: Admitting Provider Psychiatry & Neurology Psychiatry; Visit Provider Nurse Practitioner Family | DX: E53.8 Deficiency of other specified B group vitamins (principal) | CPT/HCPCS: 99221 ==